=== PATIENT | female | born 1960 | race Caucasian/White ===

== ENCOUNTER 2018-03-17 08:15 | Outpatient (CLI) | payer OTHER, SELFPAY ==
[2018-03-17 09:15] LABS: Microalb ug/mg Crea 3.5 ug/mg Cr
[2018-03-17 10:06] LABS: ALT 58 U/L (12-78); AST 34 U/L (15-37); Albumin 4.1 g/dL (3.4-5.0); Alkaline Phosphatase 56 U/L (46-116); Anion Gap 7.4 mmol/L (3-11); BUN 22 mg/dL (7-18); Bilirubin, Total 0.6 mg/dL (0.2-1.0); CO2 30.6 mmol/L (21.0-32.0); CREATININE 1.02 mg/dL (0.55-1.02); Calcium 8.7 mg/dL (8.5-10.1); Chloride 102 mmol/L (98-107); Cholesterol 221 mg/dL (50-200); Estimated GFR 55.86 (mL/min/1.73m2); Glucose 108 mg/dL (70-100); HDL Cholesterol 75 mg/dL (40-60); LDL CHOLESTEROL 131 mg/dL (<100); Potassium 4.5 mmol/L (3.5-5.1); Sodium 140 mmol/L (136-145); Total Protein 6.9 g/dL (6.4-8.2); Triglyceride 59 mg/dL (30-150)
== END 2018-03-17 08:35 ==
PROVIDERS: PCP Nurse Practitioner Family; Visit Provider Nurse Practitioner Family
DX: I10 Essential (primary) hypertension (principal)
CPT/HCPCS: 36415; 80053; 80061; 83721; 82043; 82570

== ENCOUNTER 2018-08-11 10:09 | Emergency (ER) | payer OTHER, SELFPAY ==
[2018-08-11 10:18] VITALS: BP 131/88; PULSE 58; RESP 20; TEMP 36.7; O2SAT 99
--- NOTE | 2018-08-11 10:38 | ED.GENADUL_ITS ---
Discharge Plan Disposition Patient Disposition: HOME Condition: Good Discharge Details Chief Complaint: Cellulitis Clinical Impression: Bursitis of elbow Primary Care Provider: Rebecca Arnett ED Provider: Rachid Randhawa Home Meds and New Rx's Prescriptions: No Action aspirin [Aspir-81] 81 MG tablet,delayed release (DR/EC) 81 mg PO DAILY RF: 0 simvastatin 40 MG tablet 40 mg PO QPM RF: 0 epinephrine [EpiPen] 0.3 MG/0.3 ML auto-injector 0.3 mg IM PRNRF: 0 albuterol sulfate [Ventolin HFA] 8 GM HFA aerosol inhaler 18 gm Inhalation PRNRF: 0 calcium carbonate-vitamin D3 [Calcium 500 With D] 1 EACH tablet 1 ea PO DAILY RF: 0 Fish Oil 300 MG capsule 300 mg PO DAILY RF: 0 citalopram 10 mg Tablet 10 mg PO DAILY RF: 0 lisinopril 20 mg Tablet 20 mg PO DAILY RF: 0 Discharge Instructions Instructions: Elbow Bursitis (ED) Additional Instructions: Please take the clindamycin as directed. If you notice any spreading of the redness, please return immediately if you notice any worsening of your symptoms whatsoever return immediately for reevaluation in the ED. If your symptoms are not improving please follow-up promptly on Wednesday morning with your primary care provider. Please continue taking Tylenol and Motrin regularly. Use ice as we discussed. If you notice any worsening of your symptoms, or any new symptoms such as vomiting, diarrhea, fever, chills, shortness of breath, chest pain, numbness, weakness, or fainting , please return immediately to the emergency department for reevaluation. Please follow up with your primary care provider as soon as possible for reassessment and reevaluation. As always, it was a pleasure participating in your medical care today. Referrals: Irineo Solomon NP [NURSE PRACTITIONER] - Medical Decision Making This is a pleasant 58-year-old female who presents for left elbow pain on her nondominant elbow. She sustained an injury 2 weeks ago, no imaging was done as there was no significant pain. She has no history of gout or bursitis that she can recall. She was initially seen by her PCP 2-3 days ago for redness and swelling around the elbow, she was started on Keflex, unfortunately since then her symptoms have worsened, the redness and swelling has spread, she has had associated chills and malaise. She is not a diabetic. She has been taking the Keflex as directed since that initial episode and her symptoms have continued to worsen. Physical exam does demonstrate evidence of redness and swelling, however symptoms appear clinically consistent with potential infected bursitis rather than a septic joint. It was requested advised that we rule out septic joint, and although there is no significant clinical evidence of sepsis, with the patient spreading redness, and worsening of symptoms while on Keflex I do feel that workup is indicated at this time. If the patient's laboratory workup is relatively benign, I do feel that she would be a candidate for discharge home with stronger antibiotic therapy, primarily clindamycin. We will give the first dose of IV clindamycin here. 11:54 AM Patient's laboratory workup has returned, she has no elevated white count, however her ESR is minimally elevated at 32 and her CRP is notably elevated at 9, the remainder of her lab work is otherwise benign. The patient's x-ray shows no acute fracture. There is some soft tissue swelling but no other significant abnormality that I can appreciate. Formal x-ray report is read as normal. I did contact Dr. Bolaños, and discussed the case with him, including the imaging and laboratory workup as well as the patient's current clinical presentation in detail. He recommended starting the patient on Bactrim, however I suggested clindamycin and he was in agreement with this. Patient will be continued on clindamycin, Dr. galarza back and does not want immediate follow-up, thinks that at this time she should follow-up closely with her PCP. He feels that her signs and symptoms are clinically consistent with infected bursitis, and I do agree with this as she has normal range of motion without significant pain with movement, and her symptoms are clinically inconsistent with a septic joint. Bedside portable ultrasound shows no evidence of significant fluid pocket neck and actively be drained at this time. She is been given her first dose of clindamycin here, will give a prescription for home use. I had a long and thorough discussion with the patient regarding the plan for prompt return if she has any spreading of the redness, worsening of her symptoms, or worsening of her pain. The patient and are comfortable with this plan. I informed them to contact us if they have any concerns about any of her symptoms. I have extensively reviewed the treatment plan and discharge instructions with the patient and their family. I have addressed all patient concerns at this time. The patient and family was made aware of what symptoms to monitor for that would warrant a return to the emergency department. Discussed the plan with the patien t and family, they demonstrate verbal understanding and agreement with our assessment and plan at this time. HPI General Date/Time Provider Initiated Documentation: 08/11/18 10:17 . HPI Narrative: This is a 58-year-old female with a past medical history of hypertension, high cholesterol, who presents today for evaluation of left elbow pain. Patient states that she fell 2 weeks ago onto her left nondominant elbow. She had no pain at that time, things are going well until 2-3 days ago when she began to develop pain swelling and redness around the elbow. She was given Keflex over 48 hours ago by her PCP and is been taking that as directed ever since. Unfortunately since then she has gotten worse, the redness is spread down and up her arm, she complains of chills and general aches and pains and malaise at home. She denies any actual fever. She was seen by her PCP today prior to arrival who sent her into the ER to rule out a septic joint. Patient has no other complaints at this time. Pain is made worse with movement, but only in the maximal planes of flexion and extension, not with mild movement at the elbow itself. Pain is located on the tip of the elbow. She denies any history of gout. No other complaints or modifying factors at this time. Related Data Home Medications Medication Instructions Recorded Confirmed albuterol sulfate [Ventolin Hfa] 18 gm INHALATION PRN 10/18/12 10/18/12 aspirin [Aspir 81] 81 mg PO DAILY 10/18/12 08/11/18 calcium carbonate-vitamin D3 1 ea PO DAILY 10/18/12 08/11/18 [Calcium 500 with Vitamin D Tab] epinephrine [Epipen] 0.3 mg IM PRN 10/18/12 10/18/12 omega-3 fatty acids [Fish Oil] 300 mg PO DAILY 10/18/12 08/11/18 simvastatin 40 mg PO QPM 10/18/12 07/09/16 citalopram 10 mg PO DAILY 08/11/18 08/11/18 lisinopril 20 mg PO DAILY 08/11/18 08/11/18 Allergies Allergy/AdvReac Type Severity Reaction Status Date / Time bee pollen [Bee Pollen] Allergy Severe anaphylacti Unverified 08/11/18 10:21 c General Stated Complaint: Cellulitis DESIREE: 3 Review of Systems Review of Systems All systems reviewed & are unremarkable except as noted in HPI and below PFSH Medical History High cholesterol (Chronic) Hypertension (Chronic) Social History Smoking/Tobacco Use Status: Never Alcohol Intake: never Drug use: Never Substance use type: does not use Do you feel safe at home: Yes Do you feel safe in your relationship?: Yes Exam Narrative Exam Narrative: 1.Const: Well-nourished, Well-developed, appearing stated age 2.Eyes: PERRL, no conjunctival injection, and symmetrical lids. 3.ENT: Atraumatic external nose and ears. Moist MM. Neck: Symmetric, trachea midline, No thyromegaly. 4.CVS: +S1/S2, No murmurs or gallops. Peripheral pulses 2+ and equal in all extremities. Brisk capillary refill in all extremities. 5.RESP: Unlabored respiratory effort. Clear to auscultation bilaterally. No wheezes rales or rhonchi 6.GI: Soft, Nontender/Nondistended, No hepatosplenomegaly. No guarding or rebound. 7.MSK: Normocephalic/Atraumatic, Extremities w/o deformity. No cyanosis or clubbing. Notable swelling and redness over the olcrenon OF THE LEFT ELBOW. THERE IS A SCAB AT THE TIP BUT NO ACTIVE DRAINAGE. The area has minimal fluctuance, notable warmth, the warmth and redness spread proximally and distally down the arm, extending past the marked line that delineated where the redness was 2 days ago. Range of motion of the elbow is good, no evidence of crepitus, or subcutaneous crepitus. Pain is noted at the maximal points of flexion and extension for the elbow. Swelling is present down to the wrist. Sensation is intact throughout, radial pulses are intact bilaterally, +2. Capillary refill is brisk. 8.Skin: Warm, Dry. No rashes or lesions. 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 Sensation grossly intact, no focal neurologic deficits. 10.Psych: (AAO) x3. Appropriate mood and affect Course Vital Signs Temperature 36.7 C 08/11/18 10:18 Pulse 58 L 08/11/18 10:18 Respiratory Rate 20 08/11/18 10:18 Blood Pressure 131/88 08/11/18 10:18 Pulse Oximetry 99 08/11/18 10:18 Temperature 36.7 C 08/11/18 10:18 Temperature Source Temporal Artery Scan 08/11/18 10:18 Pulse 58 L 08/11/18 10:18 Respiratory Rate 20 08/11/18 10:18 Respiratory Effort Non-Labored 08/11/18 10:18 Blood Pressure 131/88 08/11/18 10:18 Blood Pressure Position Sitting 08/11/18 10:18 Pulse Oximetry 99 08/11/18 10:18 Oxygen Delivery Method Room Air 08/11/18 10:18 Oxygen Flow Rate 0 08/11/18 10:18 Pain Level 4 08/11/18 10:18 Lab/Test Results Lab/Test Results: 08/11/18 10:28 Blood Blood Culture - Pending 08/11/18 10:28 Blood Blood Culture - Pending
[2018-08-11 10:57] LABS: Abs Immature Grans 0.01 k/cumm (0.0-0.09); Absolute Basophil Count 0.02 k/cumm (0.0-0.2); Absolute Eosinophil Count 0.04 k/cumm (0.0-0.7); Absolute Lymphocyte Count 1.58 k/cumm (1.2-3.4); Absolute Neutrophil Count 6.22 k/cumm (1.2-6.7); Basophils % 0.2; Eosinophils % 0.5; HCT 41.4 % (36.0-46.0); HGB 14.2 g/dL (12.0-15.5); Immature Grans % 0.1; Lymphocytes % 18.2; Mean Corp. HGB Concentration 34.3 g/dL (32.0-36.0); Mean Corpuscular Hemoglobin 32.3 pg (27.0-33.0); Mean Corpuscular Volume 94.3 fL (80-95); Mean Platelet Volume 10.8 fL (8.0-11.0); Monocytes % 9.2; Neutrophils % 71.8; Platelet Count 212 x1000/uL (130-400); RBC 4.39 m/cumm (4.00-5.20); RBC Distribution Width 12.2 % (11.7-14.6); White Blood Cell Count 8.67 k/cumm (4.4-10.8)
[2018-08-11] MEDS: CLINDAMYCIN 600 MG/50 ML BAG 100 MG IVPB (11:11)
[2018-08-11 11:19] LABS: ALT 49 U/L (12-78); AST 31 U/L (15-37); Albumin 3.6 g/dL (3.4-5.0); Alkaline Phosphatase 66 U/L (46-116); Anion Gap 7.3 mmol/L (3-11); BUN 20 mg/dL (7-18); Bilirubin, Total 0.4 mg/dL (0.2-1.0); C-Reactive Protein 9.02 mg/dL (0.0-0.3); CO2 26.7 mmol/L (21.0-32.0); CREATININE 0.97 mg/dL (0.55-1.02); Calcium 8.8 mg/dL (8.5-10.1); Chloride 103 mmol/L (98-107); Estimated GFR 59.19 (mL/min/1.73m2); Glucose 109 mg/dL (70-100); Potassium 4.4 mmol/L (3.5-5.1); Sodium 137 mmol/L (136-145); Total Protein 6.9 g/dL (6.4-8.2)
--- NOTE | 2018-08-11 11:38 | DI.RAD_ITS ---
SYMPTOMS/DIAGNOSIS: LT ELBOW SWELLING, PAIN AFTER INJURY, ? FX LEFT ELBOW: Sof tissue swelling is noted about the elbow. The findings most prominent over the olecranon process of the ulna. There is no evidence of a joint effusion, fracture or dislocation.
[2018-08-11 11:49] LABS: ESR 32 MM/HR (0-30)
--- NOTE | 2018-08-12 08:29 | PDOC.ERCMPRO ---
Care Management Progress Note 08/12-Dr. Randhawa requested assistance with a PCP (Neha) f/u on Sunday 08/13 for cellulitis left elbow. Referral faxed to [facility] 08/11 in the afternoon.
--- NOTE | 2018-08-21 11:07 | W.ED.FU ---
Date of service: 08/21/18 Follow Up Plan: The patient called back today on 08/21/18. She states that her elbow is much better, the redness is gone away completely and that she is feeling much better, however this morning she did notice a mild itchy rash on her scalp and on some other places of her body. She denies any skin breakdown or sloughing of the skin for this rash. The patient has had 10 days of clindamycin, and the rash just started. She denies any acute GI symptoms, throat tightening, swelling, difficulty breathing, difficulty eating or drinking, or difficulty controlling secretions. I recommended to her that if she has any concerns she can immediately come in to be assessed and evaluated, however an alternative is taking 50 mg of Benadryl, taking multiple cell feeds to manage change in rash, and then reassessment after Benadryl. Patient elected to start with Benadryl and then either call back or reassess as the symptoms change. I made it clear that we would be happy to see her here in the emergency department as well as talk to her again if she had any questions or concerns. Clinically from the phone call certainly sounds like a very mild rash, potentially allergic in nature, but if it is very mild. Recommended stopping clindamycin as well as she has had a full 10 days of antibiotics.
== END 2018-08-11 12:04 | disposition home or self-care (01) ==
PROVIDERS: Emergency Provider Student in an Organized Health Care Education/Training Program; PCP Nurse Practitioner Family
DX: M70.22 Olecranon bursitis, left elbow (principal); I10 Essential (primary) hypertension
CPT/HCPCS: 36415; 80053; 85652; 87040; 96365; 99284; 73080; 83605; 85025; 86140

== ENCOUNTER 2018-10-13 10:54 | Outpatient (CLI) | payer OTHER, SELFPAY ==
--- NOTE | 2018-10-13 10:50 | DI.RAD_ITS ---
SYMPTOMS/DIAGNOSIS: PAIN, ? DJD LT KNEE LEFT KNEE: Narrowing of the medial tibiofemoral joint space is demonstrated. There is mild periarticular hypertrophic spurring. Findings consistent with moderate DJD.
== END 2018-10-13 11:14 ==
PROVIDERS: PCP Nurse Practitioner Family; Visit Provider Orthopaedic Surgery
DX: M25.562 Pain in left knee (principal); M17.12 Unilateral primary osteoarthritis, left knee
CPT/HCPCS: 73562

== ENCOUNTER 2019-02-23 02:51 | Outpatient (CLI) | payer OTHER, SELFPAY ==
--- NOTE | 2019-02-23 12:50 | DI.MAMMO_ITS ---
EXAM: MG MAMMO SCREENING CLINICAL HISTORY: PREVENTIVE CARE Z00.00. TECHNIQUE: Mammograms were interpreted according to the usual protocol including computer analysis w Viropro system, tomosynthesis and C-view imaging. COMPARISON: Current examination is compared with previous examinations including September 2015 FINDINGS: Breasts are of moderate density with fairly symmetrical distribution of fibroglandular tissue. No dom inant mass or clumped microcalcification is identified in either breast. Current examination is comp ared with previous examinations including September 2015 and there has been no gross interval change in myke earance in comparison with the previous studies. IMPRESSION: No specific evidence of malignancy at this time. Routine screening examinations are suggested at year ly intervals in this age group according to the ACS/ACR guidelines. Category 1, breast density catego ry B. BI-RADS Cat 1 - Negative Breast Density - Category B - Scattered areas of fibroglandular density
== END 2019-02-23 03:11 ==
PROVIDERS: PCP Nurse Practitioner Family; Visit Provider Nurse Practitioner Family
DX: Z00.00 Encounter for general adult medical examination without abnormal findings (principal); Z12.31 Encounter for screening mammogram for malignant neoplasm of breast
CPT/HCPCS: 77063; 77067

== ENCOUNTER 2019-05-25 13:20 | Outpatient (CLI) | payer OTHER, SELFPAY ==
--- NOTE | 2019-05-25 14:25 | DI.RAD_ITS ---
EXAM: XR STANDING ALIGNMENT CLINICAL HISTORY: pre-operative planning for left TKA TECHNIQUE: AP views of the lower extremities were obtained for leg length determination. COMPARISON: No exams were available for comparison FINDINGS: There appear to be mild degenerative changes of both hips. There are severe degenerative changes of the left knee predominantly involving the medial tibiofemoral joint with prominent marginal osteophyt es involving medial and lateral tibiofemoral joints. Mild DJD of the right knee noted with mild narr owing of medial tibiofemoral joint.
== END 2019-05-25 13:40 ==
PROVIDERS: PCP Nurse Practitioner Family; Visit Provider Nurse Practitioner Family
DX: M16.0 Bilateral primary osteoarthritis of hip (principal); M17.0 Bilateral primary osteoarthritis of knee
CPT/HCPCS: 77073

== ENCOUNTER 2019-05-25 13:46 | Outpatient (CLI) | payer OTHER, SELFPAY ==
[2019-05-25 14:04] LABS: HGB 13.3 g/dL (12.0-15.5); Mean Corp. HGB Concentration 34.1 g/dL (32.0-36.0); Mean Corpuscular Hemoglobin 32.8 pg (27.0-33.0); Mean Corpuscular Volume 96.3 fL (80-95); Mean Platelet Volume 10.1 fL (8.0-11.0); Platelet Count 300 x1000/uL (130-400); RBC 4.05 m/cumm (4.00-5.20); RBC Distribution Width 13.1 % (11.7-14.6); White Blood Cell Count 8.09 k/cumm (4.4-10.8)
--- NOTE | 2019-05-25 14:06 | W.PREOPHP ---
Assessment and Plan Assessment and plan (1) Primary osteoarthritis of left knee: Status: Chronic Assessment and plan: Plan: Educated patient on surgery covering surgical technique, recovery process, benefits and risks including but not limited to risk of infection, blood clot, damage to soft tissue/blood vessels/nerves in detail. After discussion patient gives verbal understanding of risks and elects to proceed with scheduling surgery. Patient had opportunity to have questions answered to their satisfaction. They will contact office if issues arise. Patient will continue to be scheduled for left TKA with Dr. Milan. History of Present Illness Narrative: Ms. Alcala is a 59-year-old female who presents to clinic for pre-operative exam for scheduled left TKA. Patient had previously been managed by Dr. Bolaños with injections. States that her last steroid injection that provided full relief for a month. Pain is mostly along the medial aspect but has progressed to be more diffuse. There is a constant achy pain with more sharp pains elicited. Describes pain is aggravated with prolonged weightbearing activity especially at the end of the day. Also reports increased discomfort at night when laying in bed which she treats by applying pillows. Due to her continued pain she was offered and elected to proceed with surgical intervention. Pertinent Surgical Information Denies past medical history of: stroke, cardiac issues, angina, asthma, COPD, sleep apnea, renal issues, liver issues, hepatitis, gastrointestinal issues, ulcers, bleeding disorders, seizures, migraines, anxiety, diabetes, autoimmune disorders, thyroid issues. Denies prior complications from surgery or anesthesia. Review of Systems Constitutional Constitutional: Denies fever(s), Denies frequent falls and Denies headache(s) Eyes Eyes: Denies change in vision ENT Ears, Nose, Mouth, and Throat: Denies dizziness, Denies ear discharge, Denies headache(s), Denies epistaxis, Reports nasal discharge (had a runny nose - has resolved to clear discharge), Denies sinus pain, Denies sinus pressure and Denies sore throat Cardiovascular Cardiovascular: Denies chest pain, Denies rapid heart rate, Denies irregular heart rhythm, Denies palpitations, Denies dyspnea, Denies dyspnea on exertion, Denies orthopnea, Denies paroxysmal nocturnal dyspnea and Denies slow heart rate Respiratory Respiratory: Reports cough (now a dry cough - resolving), Denies dyspnea, Denies dyspnea on exertion and Denies wheezing Gastrointestinal Gastrointestinal: Denies abdominal pain, Denies melena, Denies hematochezia, Denies constipation, Denies diarrhea, Denies nausea and Denies vomiting Genitourinary Genitourinary: Denies hematuria, Denies dysuria and Denies urinary urgency Musculoskeletal Musculoskeletal: Reports as per HPI, Denies numbness and Denies tingling Neurologic Neurologic: Denies dizziness, Denies frequent falls, Denies headache(s), Denies numbness and Denies tingling Psychiatric Psychiatric: Denies anxiety and Denies depression Endocrine Endocrine: Denies palpitations Allergic/Immunologic Allergic/Immunologic: Denies wheezing [facility] Medical History (Updated 05/25/19 @ 14:32 by Stefania Blackwell) Depression (Chronic) High cholesterol (Chronic) Hypertension (Chronic) Surgical History (Updated 05/25/19 @ 13:10 by Zara Bal RN) Hx of dilation and curettage (Acute) Family History (Updated 05/25/19 @ 13:15 by Zara Bal RN) Father No problems noted. Social History (Updated 05/25/19 @ 14:14 by Stefania Blackwell) Smoking/Tobacco Use Status: Former Tobacco Use Alcohol Intake: current Alcohol Intake frequency: 0-2 drinks per day Drug use: Never Substance use type: does not use Do you feel safe at home: Yes Do you feel safe in your relationship?: Yes Meds Home Medications and Allergies Home Medications Medication Instructions Recorded Confirmed Type albuterol sulfate [Ventolin Hfa] 18 gm INHALATION DIRECTED PRN 10/18/12 05/25/19 History epinephrine [Epipen] 0.3 mg IM PRN 10/18/12 05/25/19 History omega-3 fatty acids [Fish Oil] 300 mg PO HS 10/18/12 05/25/19 History simvastatin 40 mg PO QPM 10/18/12 05/25/19 History citalopram 10 mg PO HS 08/11/18 05/25/19 History lisinopril 20 mg PO HS 08/11/18 05/25/19 History naproxen 250 mg tablet 250 mg PO BID PRN 03/02/19 05/25/19 History Allergies Allergy/AdvReac Type Severity Reaction Status Date / Time bee pollen [Bee Pollen] Allergy Severe anaphylacti Unverified 05/25/19 14:10 c clindamycin AdvReac RASH Verified 05/25/19 14:10 Exam Const General: cooperative and no acute distress [facility] Head: normal to inspection, normocephalic and atraumatic Ears: external ears normal General nose exam: external nose normal and no nasal discharge Face and sinus: face symmetric Mouth: oral mucosae normal, lip normal, tongue normal and moist mucous membranes Teeth and gingiva: dentition normal Throat: posterior oropharynx normal Eyes General: appearance normal, both eyes and all related structures Pupils: PERRL EOM: EOM intact bilaterally Neck Neck: trachea midline Carotids: normal carotid upstroke Lymphatic: no lymphadenopathy noted Resp Effort & Inspection: normal respiratory effort and able to speak in complete sentences Auscultation: clear to auscultation bilaterally, no rales, no rhonchi and no wheezes Cardio Heart Sounds: S1 normal, S2 normal and no murmurs Pulses: radial pulses present bilaterally GI Palpation: soft, no hepatosplenomegaly and nontender Auscultation: normal bowel sounds Skin General skin exam: no rashes or lesions noted Results Labs Result diagrams: 05/25/19 13:55 05/25/19 13:55 Labs: Laboratory Results - last 24 hr 05/25/19 13:55 WBC 8.09 RBC 4.05 Hgb 13.3 Hct 39.0 MCV 96.3 H MCH 32.8 MCHC 34.1 RDW 13.1 Plt Count 300 MPV 10.1
[2019-05-25 14:44] LABS: Anion Gap 6.9 mmol/L (3-11); BUN 21 mg/dL (7-18); CO2 31.1 mmol/L (21.0-32.0); CREATININE 0.81 mg/dL (0.55-1.02); Calcium 9.5 mg/dL (8.5-10.1); Chloride 103 mmol/L (98-107); Glucose 96 mg/dL (74-106); Potassium 4.5 mmol/L (3.5-5.1); Sodium 141 mmol/L (136-145)
== END 2019-05-25 14:06 ==
PROVIDERS: PCP Nurse Practitioner Family; Visit Provider Student in an Organized Health Care Education/Training Program
DX: M25.562 Pain in left knee (principal); M17.12 Unilateral primary osteoarthritis, left knee; Z01.818 Encounter for other preprocedural examination; Z01.812 Encounter for preprocedural laboratory examination
CPT/HCPCS: 36415; 80048; 85027; NC

== ENCOUNTER 2019-05-30 06:25 | Observation (INO) | payer OTHER, SELFPAY ==
[2019-05-25 13:07] VITALS: BP 139/92; PULSE 65; RESP 16; TEMP 37.2; O2SAT 97
[2019-05-30] VITALS (9 sets, daily range): BP systolic 110–130; BP diastolic 69–85; PULSE 57–70; RESP 15–23; TEMP 36.1–37.1; O2SAT 95–98
[2019-05-30] MEDS: Acetaminophen 500 MG TAB 1000 MG PO ×2 (07:01→16:47)
[2019-05-30] MEDS: Gabapentin 300 MG CAP PO (07:02)
[2019-05-30] MEDS: Celecoxib 200 MG CAP 400 MG PO (07:02)
[2019-05-30] MEDS: Lactated Ringers 1,000 ML 80 ML IV ×3 (07:25→11:43)
[2019-05-30] MEDS: ceFAZolin 2 GM/50 ML BAG IVPB (08:12)
[2019-05-30] MEDS: Bupivacaine 0.25% Pres-Free 30 ML VIAL (09:10)
[2019-05-30] MEDS: Ketorolac 30 MG/ML VIAL (09:12)
[2019-05-30] MEDS: Normal Saline 20 ML VIAL (09:14)
[2019-05-30] MEDS: ceFAZolin 1 GM/50 ML BAG IVPB (13:01)
--- NOTE | 2019-05-30 14:12 | IN_ITS ---
Date of service: 05/30/19 Time of Service: 13:22 PT Notes Visit Reasons: (L) KNEE OA Physical Therapy Inpatient Initial Evaluation Date: 05/30/2019 Referring Doctor: Clifton Milan MD PT Orders: PT CONSULT: s/p L TKA Precautions: Fall. Standard. Activity as tolerated. Patient Profile/Admitting Diagnosis: Pt is a 59-year-old female presenting s/p L TKA on 05/30/2019. She has a history of L knee osteoarthritis, which she had received steroid injections for prior to surgery and trialed outpatient PT for reduction in pain. 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 She lives at home with her . Notes there are two steps to enter the home with no railing. Ten steps to get to the second floor with railings on the left. She notes that she could sleep on the couch if unable to do stairs. Reports that she has four cats and two dogs in the home. Equipment Owned/DME: Did not previously use any assistive devices, however does have a four-wheeled walker. Subjective: Pt reports that she is not currently experiencing any pain at the time of the IE. Objective: General Observation: Mental Status: Alert and oriented x4 Pain: 0/10 Vital Signs: Supine: BP 122/76 mmHg, HR 66 bpm Sitting: BP 127/85 mmHg, HR 61 bpm Standing: BP 120/74 mmHg, HR 75 bpm ROM: Right Upper Extremity: Shoulder Flexion WFL. Shoulder abduction WFL. Elbow flexion WFL. Wrist flexion WFL. Opening and closing of hand WFL. Left Upper Extremity: Shoulder Flexion WFL. Shoulder abduction WFL. Elbow flexion WFL. Wrist flexion WFL. Opening and closing of hand WFL. Right Lower Extremity: Hip flexion WFL. Hip abduction WFL. Knee flexion WFL. Ankle dorsiflexion WFL. Ankle plantarflexion WFL. Left Lower Extremity: Hip flexion WFL. Hip abduction WFL. Knee flexion 115 degrees. Knee extension -23 degrees. Able to perform 10 SLRs on the LLE with minimal difficulty with extensors lag. Ankle dorsiflexion WFL. Ankle plantarflexion WFL. Strength: Right Upper Extremity: Shoulder flexors 5/5. Shoulder abductors 5/5. Elbow flexors 5/5. Elbow extensors 5/5. Chisel Mortiser Operator strong. Left Upper Extremity: Shoulder flexors 5/5. Shoulder abductors 5/5. Elbow flexors 5/5. Elbow extensors 5/5. Chisel Mortiser Operator strong. Right Lower Extremity: Hip flexors 5/5. Hip abductors 5/5. Knee flexors 5/5. Knee extensors 5/5. Ankle dorsiflexors 5/5. Ankle plantarflexors 5/5. Left Lower Extremity: Hip flexors 4/5. Hip abductors 5/5. Knee flexors 3-/5. Knee extensors 3-/5. Ankle dorsiflexors 5/5. Ankle plantarflexors 5/5. Sensation: Intact as to pain and pressure on bilateral lower extremities. Bed Mobility/Transfers: Supine to sit: independent with bed flat Sit to supine: SBA Sit to stand: SBA Stand to sit: SBA Bed to chair: SBA Chair to bed: SBA Gait: Pt was able to ambulate with WBAT 150 feet using two-wheeled walker without requiring any rest breaks. SBA of PT with wheelchair and follow from student [facility] for 75 feet. Pt denies pain with ambulation, however, reports feeling of fatigue in the L quad. Balance: Static Sitting: Normal Dynamic Sitting: Normal Static Standing: Good Dynamic Standing: Fair Special Tests: Mobility Limitations Standardized Measure [facility] AM-PAC 6 clicks Basic Mobility Inpatient Short Form: Raw Score: 23 CMS Score: 11% deficit Informed Consent/Education: Patient instructed in purpose of PT consult and plan of care. Gluteal sets, quad sets, ankle pumps. Assessment: Pt is a 59-year-old female with history of L knee osteoarthritis presents s/p L TKA. At the time of the initial evaluation she reports no pain, however, presents with impairment level findings including decreased strength, impaired L knee ROM, impaired gait, impaired static and dynamic standing balance, and decreased activity tolerance. She would continue to benefit from skilled physical therapy at this time. Patient presents with clinical signs and symptoms consistent with current/admitting diagnoses that have resulted to mobility limitations, gait instability, generalized weakness, and impairment of motor control as demonstrat ed by the following impairment level findings: 1. Decreased strength to L LE hip and knee major muscle groups 2. Impaired static and dynamic standing balance 3. Impaired activity tolerance 4. Limitation of joint range of motion in L knee Impairments are contributing to the following functional limitations: 1. Dependent bed mobility skills 2. Increased dependence with transfers 3. Inability to safely ambulate without assistive device and physical assistance 4. Increase completion time for mobility ADL performance 5. Increased fall risk 6. Inability to negotiate steps alone safely 7. Inability to return to work related duties Patient is assessed as a 38286 moderate complexity based on the following: History: Pt is a 59-year-old female presenting s/p L TKA Examination: Demonstrable impairment in strength, balance, and range of motion with underlying impairments and functional limitations as documented above Presentation: evolving Decision Makin moderate complexity Goals: Goals X1 week 1. Sit-Stand independent 2. Stand-Sit independent 3. Bed-Chair independent 4. Chair-Bed independent 5. Independent gait on level surface with use of least restrictive device for at least 300 feet without report of pain nor dyspnea 6. Independent stair negotiation while holding onto bilateral rails for at least 10 steps without report of pain nor dyspnea 7. Independent with home exercise program 9. Good dynamic standing balance/tolerance Plan of Care/Treatment Plan: 1-2x/day, 7 days/week x 1 week. Plan of care has been reviewed with the [employer] providing the service under Physical Therapy direction. Initiate Physical Therapy intervention for strengthening, transfers, gait, stairs, balance training, use of assistive device. DISCHARGE RECOMMENDATIONS: Discharge to home with home health PT. TREATMENT CODE/TIME: 67907 x 38 minutes beginning at 13:22 PM. Thank you very much for this referral. Fernanda Roque, SPT DPT Student [facility] With supervision of: Velia Hadley PT, DPT, CLT [facility] [place], [place]
--- NOTE | 2019-05-30 14:55 | W.PM.DS.N ---
Date of service: 05/30/19 Time of Service: 17:20 DS: Diagnosis Discharge Diagnosis (1) Primary osteoarthritis of left knee: Status: Chronic Discharge Plan Disposition Patient Disposition: HOME Condition: Good Discharge Details Reason For Visit: (L) KNEE OA Admit Date/Time: 05/30/19 06:25 Admit Provider: Clifton Milan Attending Provider: Clifton Milan Primary Care Provider: Irineo Solomon Hospital Course Hospital Course: Patient was admitted to the medical/surgical floor following the procedure. It was tolerated well without any notable medical, surgical, or anesthetic complications. Mobilization began postoperatively. The gómez catheter was removed and voiding spontaneously. Vitals were stable. Physical therapy worked with the patient and was cleared for discharge home. No acute medical issues. Home Meds and New Rx's Prescriptions: New celecoxib 200 mg capsule 200 mg PO BID PRN (Reason: pain) Qty: 60 RF: 1 aspirin 81 mg tablet,delayed release (DR/EC) 81 mg PO BID Qty: 60 RF: 0 acetaminophen 500 mg tablet 1,000 mg PO Q8H PRN (Reason: pain) Qty: 90 RF: 3 pantoprazole 40 mg tablet,delayed release (DR/EC) 40 mg PO DAILY Qty: 30 RF: 0 gabapentin 300 mg capsule 300 mg PO QHS Qty: 7 RF: 0 oxycodone 5 mg tablet 5 mg PO Q4H Qty: 18 RF: 0 Continued simvastatin 40 MG tablet 40 mg PO QPM RF: 0 albuterol sulfate [Ventolin HFA] 8 GM HFA aerosol inhaler 18 gm Inhalation DIRECTED PRNRF: 0 Fish Oil 300 MG capsule 300 mg PO HS RF: 0 citalopram 10 mg Tablet 10 mg PO HS RF: 0 lisinopril 20 mg Tablet 20 mg PO HS RF: 0 Discontinued naproxen 250 mg tablet 250 mg PO BID PRNRF: 0 epinephrine [EpiPen] 0.3 MG/0.3 ML auto-injector 0.3 mg IM PRNRF: 0 acetaminophen [Tylenol Extra Strength] 500 mg Tablet 500 mg PO Q6H PRNRF: 0 Discharge Instructions Additional Instructions: Dr. Milan?s Total Knee Discharge Instructions Activity: The most important activity is to walk. You should try to take short walks a few times a day. It is important that when resting you work on keeping the knee straight. Avoid putting a pillow behind the knee as this will encourage flexion. Work on range of motion exercises as provided by Physical Therapy. - Start outpatient physical therapy within 2 weeks. - You should wear the MISTY hose on both legs for 2 weeks. Dressing: Remove the MELQUIADES wrap on 06/01/19. Keep the underlying surgical dressing in place for at least one week. After the first week it may be removed and replace with light gauze and tape or nothing. It may get wet after 3 days but avoid soaking the dressing. If it gets wet, just lightly pat dry. Medications: - You should take Tylenol and anti-inflammatory Celebrex as your primary pain control medications - You have been prescribed a stronger pain medication Oxycodone for breakthrough pain, take as needed as prescribed. - You have also been prescribed a stomach acid reduction agent Pantoprozole to help reduce stomach acid and reflux. - You will be taking Aspirin 81mg twice a day for DVT prevention unless instructed otherwise. - If you have constipation you should take Colace or Miralax (both [id number]). It takes most people 3-4 days to have a bowel movement. Follow-up: 2 weeks Referrals: Clifton Milan MD [ [facility] STAFF PHYSICIAN] - [facility] [Provider Group] (s/p L TKA) Activity:: Activity as Tolerated Equipment/Supplies:: Walker Diet:: As Tolerated Discharge Orders Discharge Orders: Discharge Order (Routine); Ordered 05/30/19 Ordered By: Clifton Milan DS: Summary Status at Discharge Functional status at discharge: uses cane/walker Overall status at discharge: patient is progressing back to baseline Mental Status: mental status grossly normal Speech and Movement: speech and movement normal Mood: congruent mood Affect: normal affect Exam Psych Mental Status: mental status grossly normal Speech and Movement: speech and movement normal Mood: congruent mood Affect: normal affect DS: Data Vitals/I&O Vitals and I&O: Vital Signs Temperature 37 C 05/30/19 11:38 Temperature Source Tympanic 05/30/19 11:38 Pulse 64 05/30/19 11:38 Pulse Rhythm Regular 05/30/19 11:44 Respiratory Rate 17 05/30/19 11:38 Respiratory Effort Non-Labored 05/30/19 11:44 Respiratory Depth Normal 05/30/19 11:44 Respiratory Pattern Normal 05/30/19 11:44 Blood Pressure 126/83 05/30/19 11:38 Pulse Oximetry 97 05/30/19 11:38 Respiratory End-tidal CO2 34 05/30/19 10:48 Oxygen Delivery Method Room Air 05/30/19 11:38 Oxygen Flow Rate 0 05/30/19 11:38 Pain Level 0 05/30/19 11:38 Intake & Output 05/29/19 05/30/19 05/30/19 23:59 11:59 23:59 Intake Total 1339.333 / 1579.333 240 / 1579.333 Output Total 225 / 225 Balance 1114.333 / 1354.333 240 / 1354.333 Weight 87.1 kg Intake: IV 1189.333 / 1189.333 Oral 150 / 390 240 / 390 Output: Urine 75 / 75 Estimated Blood Loss 150 / 150 Other: Urine Color Yellow Urine Appearance Clear Emesis Description None PFSH Medical History Depression (Chronic) High cholesterol (Chronic) Hypertension (Chronic) Surgical History Hx of dilation and curettage (Acute) Family History Father No problems noted. Social History Smoking/Tobacco Use Status: Former Tobacco Use Alcohol Intake: never Drug use: Never Substance use type: does not use Do you feel safe at home: Yes Do you feel safe in your relationship?: Yes
[2019-05-30] MEDS: oxyCODONE 5 MG TAB PO (16:46)
--- NOTE | 2019-05-30 17:22 | W.PM.OP ---
Date of service: 05/30/19 Time of Service: 10:22 Operative Note Operative Note DATE OF PROCEDURE: 05/30/19 PRE-OP DIAGNOSIS: Left Knee Osteoarthritis POST-OP DIAGNOSIS: same PROCEDURE: Left Total Knee Replacement SURGEON: Clifton Milan DRY CAN TENDER: Juliette Newell ANESTHESIA: regional and spinal ESTIMATED BLOOD LOSS: 150 PATHOLOGY: none sent TOURNIQUET TIME: 33 COMPLICATIONS: None Patient was transported to: PACU Patient's condition: stable Implants: 1. Depuy Attune Posterior Stabilized Femoral Component, Size 5 Narrow 2. Depuy Attune Fixed Platform Tibial Component, Size 4 3. Depuy Attune 5x8mm Fixed, Stabilized Poly 4. Depuy Attune Patellar Component, Size 35mm Indications: I have seen Emi in clinic for symptoms of left knee arthritis, confirmed with radiographic findings. Emi has exhausted nonoperative methods and was having significant limitations in daily function and desired better function and less pain. I discussed the technical details of a knee replacement. I explained the risks of the procedure to include, but not limited to, bleeding, infection, pain, stiffness, fracture, damage to nerves and vessels, damage to muscles and tendons, loosening, need for repeat procedure, blood clot and cardiopulmonary demise. Despite these risks, She elected to proceed. Findings: There was significant signs of arthritis throughout the knee. Procedure Description: Emi was greeted in the preoperative holding area where the correct side was identified and marked. The consent was reviewed with the patient and signed. The history and physical was updated. All questions were answered. Preoperative mediacations were administered: Acetaminophen 1000mg, Celebrex 400mg, and Gabapentin 300mg. An adductor canal block was then administered by the anesthesia team in the PACU. Emi was taken back to the operating room. A spinal anesthestic was then administered. The patient was placed into the supine position on the operating room table. A nonsterile tourniquet was placed high onto the leg but only used for cementing. Posts were placed for positioning during the procedure. All bony prominences were well padded. Prophylactic antibiotics in the form of Cefazolin were administered. 1g of Tranxemic Acid was given intravenously within 30 minutes of incision. The left leg was then prepped with Chloraprep and draped in a standard fashion with impervious stockinette and extremity drape. A second prep with Chloraprep was performed prior to placing Ioband. A timeout to confirm correct identity, side and site, procedure, allergies, anesthesia, and medical concerns was performed. With the knee in some flexion, a midline incision was made overlying the knee. Full thickness skin flaps were raised once the extensor mechanism was encountered. These were raised medially and laterally. Any bleeding was controlled with electrocautery. Once the extensor mechanism was fully exposed, a medial parapatellar arthrotomy was performed in a flexed position. All bleeding from the arthrotomy and the geniculate arteries was coagulated. A medial subperiosteal peel was performed with electrocautery to the midcoronal plane. Due to the significant varus deformity the entire medial tibial plateau was exposed. The fat pad was removed while keeping the patellar tendon protected. The anterior distal femur synovium was removed for later visualization. The ACL and PCL were resected and the anterior horn of the lateral meniscus was transected. The knee was then flexed with the patella everted. Large osteophytes from the tibia were removed. Large osteophytes from the femur were removed. Using a step drill, and based on preoperative templating, the femoral canal was entered. This was done with a step drill without any difficulty. The intramedullary distal femoral cut guide was inserted, set to a 5 degree valgus cut and 9mm cut thickness. The distal femoral cut guide was then held in position and pinned. With the soft tissues protected, the distal cut was performed. This was passed over a few times to ensure a planar cut. I then turned attention to the tibia. The extramedullary guide was placed onto the leg. The distal aspect was slid medial to adjust for position of center of ankle and stay in line with shaft of the tibia. Approximately 3-5 degrees of posterior slope was kept in the proximal cutting guide. The center of the guide was aligned with the PCL. The stylus was used to assess cut thickness. The medial side, most involved side, was set for a 4mm cut which corresponded to a 9mm cut of the lateral side. This was then held in position and pinned into place with 2 additional pins and a cross pin for stability. The medial and lateral collateral ligaments were protected and the cut was performed. With this completed, it was assessed and noted to be of appropriate dimensions. The guide was removed. A spacer block was inserted and the knee was brought into extension. The 7mm spacer block provided full extension, without hyperextension and with stability of both the medial and lateral collateral ligaments was assessed. The pins from the femur and the tibia were then removed. The distal femur was then sized. The anterior stylus was placed onto the lateral ridge of the anterior femur. This indicated a size 5 femur. The external rotation of the guide was adjusted to 3 degrees to match the epicondylar axis, perpendicular to Gulf?s line. The 4-in-1 cutting guide was the placed. The posterior medial femur cut was evaluated and appeared of good thickness. The spacer block was inserted underneath the cutting guide and stability was confirmed in 90 degrees of flexion. An lucas wing was used to confirm appropriate position of the anterior cut to avoid notching. This cutting guide was ensured to be flush on the cut surface and then pinned into place with headed pins. While protecting the soft tissues, quad tendon, and collateral ligaments, the anterior and posterior cuts were performed with a saw. The central two pins were removed and the posterior and anterior chamfers were cut next. The notch-cutting guide was placed. This was pinned to lateralize the femoral component as much as possible while keeping it flush on the cut surface. This was then pinned into position. A reciprocating saw was used to make the notch cut. A rasp smoothed the cut surfaces. A trial posterior stabilized femoral component was then inserted, impacted down to the cut surfaces, and the lug holes were drilled. A provisional trial tibial component was placed and the knee was brought through range of motion. The polyethylene was trialed until there was good flexion and extension with excellent stability to the medial and lateral collaterals. The patella was tracking without thumbs. The tibial cut surface was fully exposed. The medial and lateral menisci were removed. The tibia was then sized as a 4. The tibia had been previously marked during trialing to correspond to the center of the tibial component to help with rotation. The trial was aligned to this juliette, approximately rotated to the medial 1/3rd of the tibial tubercle. The trial was pinned into place. The tibia was prepared with a reamer and a keel punch. The knee was then brought into extension and the patella was measured as 20mm. Using the patellar clamp and cut guide, this was resected to a flat surface with at least 13mm of thickness remaining. The size 35 patella fit the best. This was oriented and then clamped into position. The lugs were drilled. The trial components were removed. The final components, except for the polyethylene were opened on the back table. The periosteal and capsular tissues, especially posteriorly, around the knee were then systematically injected with a periarticular cocktail consisting of 50cc 0.25% Marcaine, 30mg Ketorolac, 20cc of Exparal and 50cc of injectable saline. The tourniquet was then inflated to 275mmHg. The knee was thoroughly irrigated with a pulse lavage and dried. On the back table, with the implants opened, the cement was mixed. 2 batches of antibiotic laden cement were prepared with vacuum assistance. After the cement was ready it was placed on to the back side of the tibial component. A small amount was placed onto the posterior flange of the femur. Cement was manual pressurized and impregnated into the cut surface of the tibia. The tibial component was then inserted into the cut surface and impacted into position. Excess cement was removed and the component was reimpacted. Again, excess cement was removed and our attention was then turned to the femur. The femoral cut surface was once again dried and cement was manually impacted into the cut surface. The femoral component was lined with the lug holes and impacted. Excess cement was removed. It was ensured to be down against the cut surface. The trial polyethylene was then inserted and the leg was brought out into full extension for the duration of the cement curing process, approximately 15min. Cement was lastly manually impacted into the cut surface of the patella and the patellar button was clamped into position and held. During this process attention was turned to the gutters of the knee and for all interfaces for any excess cement. While the cement was hardening, the knee was irrigated with Irrisept chlorhexadine solution. It was allowed to sit in the knee for 3 minutes. After the cement had finally cured, approximately 15min, the clamp was removed from the patella and the knee was taken through range of motion. A size 8mm polyethylene component provided the best range of motion and stability with less than 2mm gapping with medial and lateral stress and full extension without significant hyperextension. The patella was tracking with a no-thumbs technique. The trial poly was removed and once again the knee was checked for any loose, excess, or errant cement. The poly component was then inserted and impacted into position after cleaning and drying the tibial tray. The capsule was then reapproximated with a No. 1 Vicryl at multiple locations. The capsule was finally closed with a No. 2 Stratafix, barbed suture. The tourniquet was then released and the arthrotomy appeared watertight without significant bleeding. The second dosing of 1g TXA was started. Deep tissues were then reapproximated with 0 Vicryl and 2-0 Vicryl. The skin was closed with a running 3-0 Monocryl in a subcuticular fashion. This was reinforced with skin glue. A Mepilex silver dressing was applied along with a [id number] MELQUIADES wrap. A CryoCuff was applied. Emi was transferred to the hospital bed without difficulty an suffering no apparent complication. Emi has a good prognosis. Physical therapy will start today and without restrictions, weight-bearing as tolerated. Aspirin 81mg BID will be used for DVT prophylaxis.
[2019-05-31] MEDS: Bupivacaine 0.5% Pres-Free 30 ML VIAL (07:56)
--- NOTE | 2019-05-31 13:10 | INDS_ITS ---
Date of service: 05/31/19 Time of Service: 13:11 PT Notes Visit Reasons: (L) KNEE OA Physical Therapy Inpatient Discharge Summary Date: 05/31/2019 Dates of Service: 05/30/2019 only Referring Doctor: Clifton Milan MD PT Orders: PT CONSULT: s/p L TKA Precautions: Fall. Standard. Activity as tolerated. This is a clinical summary of care provided on the duration of dates listed above. No charge was made in the completion of this documentation. No charges were billed for this documentation of care. Patient Profile/Admitting Diagnosis: Pt is a 59-year-old female presenting s/p L TKA on 05/30/2019. She has a history of L knee osteoarthritis, which she had received steroid injections for prior to surgery and trialed outpatient PT for reduction in pain. 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 She lives at home with her . Notes there are four steps to enter the home with no railing. Ten steps to get to the second floor with bilateral railings. She notes that she could sleep on the couch if unable to do stairs. Reports that she has four cats and two dogs in the home. Equipment Owned/DME: none Objective: NT ROM: Right Upper Extremity: Shoulder Flexion WFL. Shoulder abduction WFL. Elbow flexion WFL. Wrist flexion WFL. Opening and closing of hand WFL. Left Upper Extremity: Shoulder Flexion WFL. Shoulder abduction WFL. Elbow flexion WFL. Wrist flexion WFL. Opening and closing of hand WFL. Right Lower Extremity: Hip flexion WFL. Hip abduction WFL. Knee flexion WFL. Ankle dorsiflexion WFL. Ankle plantarflexion WFL. Left Lower Extremity: Hip flexion WFL. Hip abduction WFL. Knee flexion 115 degrees. Knee extension -23 degrees. Able to perform 10 SLRs on the LLE with minimal difficulty. Ankle dorsiflexion WFL. Ankle plantarflexion WFL. Strength: Right Upper Extremity: Shoulder flexors 5/5. Shoulder abductors 5/5. Elbow flexors 5/5. Elbow extensors 5/5. Boiler Control Technician strong. Left Upper Extremity: Shoulder flexors 5/5. Shoulder abductors 5/5. Elbow flexors 5/5. Elbow extensors 5/5. Boiler Control Technician strong. Right Lower Extremity: Hip flexors 5/5. Hip abductors 5/5. Knee flexors 5/5. Knee extensors 5/5. Ankle dorsiflexors 5/5. Ankle plantarflexors 5/5. Left Lower Extremity: Hip flexors 4/5. Hip abductors 5/5. Knee flexors 3-/5. Knee extensors 3-/5. Ankle dorsiflexors 5/5. Ankle plantarflexors 5/5. Bed Mobility/Transfers: Supine to sit: independent Sit to supine: SBA Sit to stand: SBA Stand to sit: SBA Bed to chair: SBA Chair to bed: SBA Gait: Pt was able to ambulate with WBAT 150 feet using two-wheeled walker without requiring any rest breaks. SBA of PT with wheelchair and follow from student SPT. Pt denies pain with ambulation, however, reports feeling of fatigue in the L upper leg. Balance: Static Sitting: Normal Dynamic Sitting: Normal Static Standing: Good Dynamic Standing: Fair Assessment: Pt is a 59-year-old with history of L knee osteoarthritis presents s/p L TKA. At the time of the initial evaluation she reports no pain, however, presents with impairment level findings including decreased strength, impaired L knee ROM, impaired gait, impaired static and dynamic standing balance, and decreased activity tolerance. Pt is to be discharged home and would continue to benefit from skilled physical therapy at this time for improved functional mobility, joint mobility, strength and management of pain. Patient continues to present with clinical signs and symptoms consistent with current/admitting diagnoses that have resulted to mobility limitations, gait instability, generalized weakness, and impairment of motor control as demonstrated by the following impairment level findings: 1. Decreased strength to L LE hip and knee major muscle groups 2. Impaired dynamic standing balance 3. Impaired activity tolerance 4. Limitation of joint range of motion in L knee Impairments continue to contribute to the following functional limitations: 1. Increased dependence with transfers 2. Inability to safely ambulate without assistive device and physical assistance 3. Increase completion time for mobility ADL performance 4. Increased fall risk 5. Inability to negotiate steps alone safely 6. Inability to return to work related duties Patient is assessed as a [id number] moderate complexity based on the following: History: Pt is a 59-year-old female presenting s/p L TKA Examination: Demonstrable impairment in strength, balance, and range of motion with underlying impairments and functional limitations as documented above Presentation: evolving Decision Makin moderate complexity Goals: Goals X1 week 3. Sit-Stand independent -NOT MET 4. Stand-Sit independent -NOT MET 5. Bed-Chair independent -NOT MET 6. Chair-Bed independent -NOT MET 7. Independent gait on level surface with use of least restrictive device for at least 300 feet without report of pain nor dyspnea -NOT MET 8. Independent stair negotiation while holding onto bilateral rails for at least 10 steps without report of pain nor dyspnea -NOT MET 9. Independent with home exercise program -MET 10. Good dynamic standing balance/tolerance -NOT MET DISCHARGE RECOMMENDATIONS: Discharge to home with home health PT. TREATMENT CODE/TIME: MT Thank you very much for this referral. Fernanda Roque, IBRAHIMA Doctor of Physical Therapy Student [facility] Velia Hadley PT, DPT, CLT [facility] [place], [place]
== END 2019-05-30 18:05 | disposition home or self-care (01) ==
LOC: MS 14:56 → PDS 05-31 11:34 → MS 05-31 11:35
PROVIDERS: Admitting Provider Student in an Organized Health Care Education/Training Program; PCP Nurse Practitioner Family; Visit Provider Student in an Organized Health Care Education/Training Program
PROC: 0SRD0J9 Replacement of Left Knee Joint with Synthetic Substitute, Cemented, Open Approach (ICD-10-PCS; CPT 27447; principal; 2019-05-30 08:30)
DX: M17.12 Unilateral primary osteoarthritis, left knee (principal); M25.562 Pain in left knee; Z96.652 Presence of left artificial knee joint; I10 Essential (primary) hypertension
CPT/HCPCS: 27447; C1776; 76942; 97162; NC; G0378; J0690; J1885; J2001; J2250; J2405

== ENCOUNTER 2019-06-15 09:36 | Outpatient (CLI) | payer OTHER, SELFPAY ==
--- NOTE | 2019-06-15 08:49 | DI.RAD_ITS ---
EXAM: XR STANDING ALIGNMENT and XR left knee INDICATION: f/u L TKA. COMPARISON: XR STANDING ALIGNMENT from 05/25/2019 TECHNIQUE: 2D digital imaging was performed. FINDINGS: The joint space is well maintained on the right. There are postsurgical changes of a left total knee replacement. The orthopedic hardware appears in good position. The right lower extremity measures 86.8 cm. The left lower extremity measures 85.7 cm.
== END 2019-06-15 09:56 ==
PROVIDERS: PCP Nurse Practitioner Family; Visit Provider Student in an Organized Health Care Education/Training Program
DX: M17.12 Unilateral primary osteoarthritis, left knee (principal); Z96.652 Presence of left artificial knee joint; Z47.1 Aftercare following joint replacement surgery; M21.70 Unequal limb length (acquired), unspecified site
CPT/HCPCS: 73560; 77073

== ENCOUNTER 2019-12-11 08:16 | Outpatient (REF) | payer OTHER, SELFPAY ==
[2019-12-13 17:24] LABS: COVID-19 RT-PCR Result NEGATIVE (Negative)
== END 2019-12-11 08:36 ==
LOC: LBO 08:16
PROVIDERS: PCP Nurse Practitioner Family; Visit Provider Nurse Practitioner Family
DX: Z11.59 Encounter for screening for other viral diseases (principal)
CPT/HCPCS: U0003

== ENCOUNTER 2020-02-12 18:40 | Outpatient (REF) | payer OTHER, SELFPAY ==
[2020-02-12 19:31] LABS: Microalb ug/mg Crea 7.8 ug/mg Cr
[2020-02-12 20:07] LABS: PROTEIN 29.1 mg/dL
[2020-02-12 20:23] LABS: Prot/Crea Ur Ratio 0.07
== END 2020-02-12 19:00 ==
LOC: NCHCN 18:40
PROVIDERS: PCP Nurse Practitioner Family; Visit Provider Nurse Practitioner Family
DX: I10 Essential (primary) hypertension (principal); R73.03 Prediabetes
CPT/HCPCS: 82043; 82565; 82570; 84156

== ENCOUNTER 2020-05-30 09:20 | Outpatient (CLI) | payer BC, SELFPAY ==
--- NOTE | 2020-05-30 09:00 | DI.RAD_ITS ---
EXAM: XR KNEE LT 2V AP,LAT CLINICAL HISTORY: annual f/u L TKA. TECHNIQUE: 2D digital imaging was performed. COMPARISON: CR XR KNEE LT 1V from 06/15/2019 FINDINGS: Position alignment of the components of prosthesis remain satisfactory. No evidence of fracture nor loosening. No radiographic evidence of osteomyelitis. IMPRESSION: DATA REPOSITORY: RADIATION DOSE DELIVERED:
== END 2020-05-30 09:40 ==
PROVIDERS: PCP Nurse Practitioner Family; Referring Provider Nurse Practitioner Family; Visit Provider Student in an Organized Health Care Education/Training Program
DX: Z96.652 Presence of left artificial knee joint (principal)
CPT/HCPCS: 73560

== ENCOUNTER 2020-09-19 15:02 | Outpatient (REF) | payer BC, SELFPAY ==
--- NOTE | 2020-09-19 09:45 | PAPFT_PTH ---
PATIENT: Emi Alcala LOC: [facility]#:[id number] AGE/SX: 60/F ROOM: RE09/19/[address]: Irineo Solomon : 1960 BED: DIS: 09/19/2020 SPEC #: [id number] RECD: 09/19/20 18:23 STATUS: ELANA REHilda #: [id number] MARCLELE: 09/19/20 09:[address]: Irineo Solomon [facility] Cytology RECD BY: Aida Chairez Tissues: 1 - CX/ENDOCX FOR PAP SMEARS Procedures: PAP THIN PREP/UVM Screening HPV DNA PROBE Comments: [id number]
[2020-09-19 14:20] LABS: ALT 58 U/L (14-59); AST 32 U/L (15-37); Albumin 4.1 g/dL (3.4-5.0); Alkaline Phosphatase 58 U/L (46-116); Anion Gap 7.9 mmol/L (3-11); BUN 16 mg/dL (7-18); Bilirubin, Total 0.5 mg/dL (0.2-1.0); CO2 28.1 mmol/L (21.0-32.0); Calcium 8.8 mg/dL (8.5-10.1); Calculated LDL 99 mg/dL (<100); Chloride 105 mmol/L (98-107); Cholesterol 184 mg/dL (<200); Estimated GFR 56.75 (mL/min/1.73m2); Glucose 99 mg/dL (74-106); HDL Cholesterol 69 mg/dL (40-60); Potassium 4.9 mmol/L (3.5-5.1); Sodium 141 mmol/L (136-145); Triglyceride 81 mg/dL (<150)
[2020-09-19 14:22] LABS: Hemoglobin A1C 5.8 % (<5.7)
== END 2020-09-19 15:03 | disposition home or self-care (01) ==
LOC: NCHCN 15:02
PROVIDERS: PCP Nurse Practitioner Family; Visit Provider Nurse Practitioner Family
DX: R73.03 Prediabetes (principal); I10 Essential (primary) hypertension; E78.5 Hyperlipidemia, unspecified; Z00.00 Encounter for general adult medical examination without abnormal findings; Z12.4 Encounter for screening for malignant neoplasm of cervix; Z11.51 Encounter for screening for human papillomavirus (HPV)
CPT/HCPCS: 80053; 80061; 88142; 83036; 87624

== ENCOUNTER 2020-12-27 16:12 | Outpatient (REF) | payer BC, SELFPAY ==
[2020-12-29 00:32] LABS: COVID-19 RT-PCR UVMMC Result Negative (Negative)
== END 2020-12-27 16:13 | disposition home or self-care (01) ==
LOC: NCHCN 16:12
PROVIDERS: PCP Nurse Practitioner Family; Visit Provider Family Medicine
DX: Z20.822 Contact with and (suspected) exposure to COVID-19 (principal)
CPT/HCPCS: U0003

== ENCOUNTER 2022-08-03 18:56 | Outpatient (REF) | payer BC, SELFPAY ==
[2022-08-03 18:45] LABS: ALT 36 U/L (14-59); AST 34 U/L (15-37); Albumin 4.2 g/dL (3.4-5.0); Alkaline Phosphatase 53 U/L (46-116); Anion Gap 8.1 mmol/L (3-11); BUN 15 mg/dL (7-18); Bilirubin, Total 0.3 mg/dL (0.2-1.0); CO2 25.9 mmol/L (21.0-32.0); CREATININE 0.8 mg/dL (0.55-1.02); Calcium 9.8 mg/dL (8.5-10.1); Calculated LDL 97 mg/dL (<100); Chloride 104 mmol/L (98-107); Cholesterol 199 mg/dL (<200); Estimated GFR 83.78 (mL/min/1.73m2); Glucose 102 mg/dL (74-106); HDL Cholesterol 91 mg/dL (40-60); Potassium 4.8 mmol/L (3.5-5.1); Sodium 138 mmol/L (136-145); Total Protein 7.2 g/dL (6.4-8.2); Triglyceride 59 mg/dL (<150)
== END 2022-08-03 18:57 | disposition home or self-care (01) ==
LOC: NCHCN 18:56
PROVIDERS: Visit Provider Nurse Practitioner Family
DX: R73.03 Prediabetes (principal); E78.5 Hyperlipidemia, unspecified; I10 Essential (primary) hypertension
CPT/HCPCS: 80053; 80061; 83036

== ENCOUNTER 2022-12-09 11:18 | Outpatient (REF) | payer BC, SELFPAY ==
[2022-12-09 17:28] LABS: Hemoglobin A1C 5.7 % (<5.7)
== END 2022-12-09 11:19 | disposition home or self-care (01) ==
LOC: NCHCN 11:18
PROVIDERS: Visit Provider Nurse Practitioner Family
DX: R73.03 Prediabetes (principal)
CPT/HCPCS: 83036

== ENCOUNTER 2023-06-21 15:50 | Outpatient (REF) | payer BC, SELFPAY ==
[2023-06-21 20:07] LABS: Hemoglobin A1C 5.6 % (<5.7)
[2023-06-21 20:08] LABS: ALT 36 U/L (14-59); AST 29 U/L (15-37); Albumin 4.3 g/dL (3.4-5.0); Alkaline Phosphatase 48 U/L (46-116); Anion Gap 9.1 mmol/L (3-11); BUN 19 mg/dL (7-18); Bilirubin, Total 0.4 mg/dL (0.2-1.0); CO2 27.9 mmol/L (21.0-32.0); CREATININE 0.9 mg/dL (0.55-1.02); Calcium 9.8 mg/dL (8.5-10.1); Chloride 102 mmol/L (98-107); Estimated GFR 72.28 (mL/min/1.73m2); Glucose 94 mg/dL (74-106); Sodium 139 mmol/L (136-145); Total Protein 7.5 g/dL (6.4-8.2)
== END 2023-06-21 15:51 | disposition home or self-care (01) ==
LOC: NCHCN 15:50
PROVIDERS: Visit Provider Nurse Practitioner Family
DX: I10 Essential (primary) hypertension (principal); R73.03 Prediabetes
CPT/HCPCS: 80053; 83036

== ENCOUNTER 2024-04-15 09:10 | Emergency (ER) | payer BC, SELFPAY ==
[2024-04-15 09:13] VITALS: BP 146/76; PULSE 83; RESP 18; TEMP 36.6; O2SAT 100
--- NOTE | 2024-04-15 09:33 | ED.GENADUL_ITS ---
Discharge Plan Disposition Patient Disposition: Home Condition: Stable Discharge Details Clinical Impression: UTI (urinary tract infection) Primary Care Provider: Unknown,Unknown ED Provider: John Branch Home Meds and New Rx's Prescriptions: New nitrofurantoin monohyd/m-cryst [Macrobid] 100 mg capsule 100 mg PO Q12H 5 Days Qty: 10 0RF Rx Instructions: must administer with a meal/food phenazopyridine [Pyridium] 200 mg tablet 200 mg PO TID PRNQty: 6 0RF Continued epinephrine 0.3 mg/0.3 mL auto-injector 0.3 mg IM ONCE Rx Instructions: as a single dose citalopram 10 mg tablet 40 mg PO HS simvastatin 40 MG tablet 40 mg PO QPM lisinopril 20 mg Tablet 20 mg PO HS hydrochlorothiazide 25 mg tablet 25 mg PO DAILY Patient Comments: TAKE ONE TABLET BY MOUTH EVERY MORNING bupropion HCl 150 mg tablet extended release 24 hr 150 mg PO DAILY Patient Comments: TAKE ONE TABLET BY MOUTH EVERY DAY Discharge Instructions Additional Instructions: Your urine is consistent with an infection. If not improving this week follow-up either with express care or your primary care provider If you feel more ill or have new symptoms such as high fevers or severe back pain return to the emergency department for reevaluation HPI General Mode of arrival: ambulatory . Date/Time Provider Initiated Documentation: 04/15/24 09:10 . Limitations to Documentation: no limitations . Information obtained by: patient . History of Present Illness 64 year old F presents to the emergency department with the chief complaint of burning with urination, urinary frequency, described as moderate, Patient reports no radiation. Patient started experiencing this hour(s) (6) and it has been constant. No relieving factors improve symptom(s), No exacerbating factors reported . Patient notes denies fever/chills. Related Data Home Medications ?Medication ?Instructions ?Recorded ?Confirmed simvastatin 40 mg tablet 40 mg PO QPM 10/18/12 04/15/24 lisinopril 20 mg tablet 20 mg PO HS 08/11/18 04/15/24 citalopram 10 mg tablet 40 mg PO HS 05/08/21 04/15/24 epinephrine 0.3 mg/0.3 mL 0.3 mg IM ONCE 05/08/21 04/15/24 injection, auto-injector bupropion HCl 150 mg 24 hr tablet, 150 mg PO DAILY 04/15/24 04/15/24 extended release hydrochlorothiazide 25 mg tablet 25 mg PO DAILY 04/15/24 04/15/24 nitrofurantoin 100 mg PO Q12H 5 days #10 caps 04/15/24 monohydrate/macrocrystals 100 mg capsule (Macrobid) phenazopyridine 200 mg tablet 200 mg PO TID PRN 6 doses #6 tabs 04/15/24 (Pyridium) Previous Rx's ?Medication ?Instructions ?Recorded nitrofurantoin 100 mg PO Q12H 5 days #10 caps 04/15/24 monohydrate/macrocrystals 100 mg capsule (Macrobid) phenazopyridine 200 mg tablet 200 mg PO TID PRN 6 doses #6 tabs 04/15/24 (Pyridium) Allergies Allergy/AdvReac Type Severity Reaction Status Date / Time bee pollen (Bee Pollen) Allergy Severe anaphylacti Unverified 04/15/24 09:17 c clindamycin AdvReac RASH Verified 04/15/24 09:17 General Stated Complaint: Urinary DESIREE: 3 Review of Systems All systems reviewed & are unremarkable except as noted in HPI and below Constitutional Constitutional: Denies chills, Denies fever(s) and Denies weakness Cardiovascular Cardiovascular: Denies chest pain and Denies dyspnea Respiratory Respiratory: Denies cough and Denies dyspnea Gastrointestinal Gastrointestinal: Denies abdominal pain and Denies vomiting Genitourinary Genitourinary: Reports dysuria and Reports urinary urgency Integumentary/Breasts Skin/Breast: Denies rash Neurologic Neurologic: Denies weakness Psychiatric Psychiatric: Denies depression Exam Const General: no acute distress Orientation: alert [facility] Head: normal to inspection Ears: external ears normal General nose exam: external nose normal Mouth: moist mucous membranes Eyes General: appearance normal, both eyes and all related structures Neck Neck: normal visual inspection Resp Effort & Inspection: normal respiratory effort and able to speak in complete sentences Cardio Rate: regular rate GI Palpation: soft and nontender General: No CVA tenderness Skin General skin exam: no rashes or lesions noted Neuro General: patient alert and patient oriented x3 Extrem General: normal to inspection Psych Mental Status: mental status grossly normal Course Vital Signs Vital signs: Vital Signs Temperature 36.6 C 04/15/24 09:13 Pulse 83 04/15/24 09:13 Respiratory Rate 18 04/15/24 09:13 Blood Pressure 146/76 H 04/15/24 09:13 Pulse Oximetry 100 04/15/24 09:13 Temperature 36.6 C 04/15/24 09:13 Temperature Source Temporal Artery Scan 04/15/24 09:13 Pulse 83 04/15/24 09:13 Respiratory Rate 18 04/15/24 09:13 Respiratory Effort Normal, Non-Labored 04/15/24 09:19 Blood Pressure 146/76 H 04/15/24 09:13 Pulse Oximetry 100 04/15/24 09:13 Medical Decision Making 64-year-old female comes about 6 hours of burning with urination and urinary frequency and urgency. Denies any fevers, abdominal pain, vomiting, back pain. She is well-appearing and afebrile on arrival. She has a soft nontender abdomen, no CVA tenderness. Suspect UTI given her symptoms, will check UA. She has no fever and appears well so doubt sepsis and do not feel other labs or imaging indicated at this time. Patient stable, UA is consistent with a urinary tract infection. Will initiate Pyridium and Macrobid. She is stable for discharge and will follow-up with her PCP if not improving, return precautions given Differential Diagnosis Differential Diagnosis: Cystitis, UTI Quality:SDOH Health Related Social Needs: No Data to Display PFSH All Active Problems (Updated 04/15/24 @ 09:56 by John Branch MD) UTI (urinary tract infection) (Acute) Reactive airways dysfunction syndrome (Acute) Prediabetes (Acute) Screening for colon cancer (Acute) Medical History (Updated 04/15/24 @ 09:56 by John Branch MD) Encounter for screening for other viral diseases Depression Hypertension High cholesterol Surgical History (Updated 05/08/21 @ 10:55 by Lidia Kohler RN) Status post total left knee replacement (05/30/19) Hx of dilation and curettage Family History Father No problems noted. Social History Smoking/Tobacco Use Status: Former Tobacco Use Smoking risk assessment performed?: Yes Alcohol Intake: current Alcohol Intake frequency: 0-2 drinks per day Drug use: Occasionally Substance use type: marijuana Housing: house Current gender identity: female Do you feel safe at home: Yes Do you feel safe in your relationship?: Yes PAWSS Have you Been Recently Intoxicated or Drunk Within the Last 30 days?: No Have you Ever Experienced Previous Episodes of Alcohol Withdrawal?: No Have you ever Experienced Withdrawal Seizures?: No Have you ever Experienced Delirium Tremens(DT)s?: No Have you ever undergone Alcohol Rehabilitation Treatment (i.e, inpt ot outpatient treatment programs)?: No Have you ever Experienced Blackouts?: No Have you ever Combined Alcohol with other Downers within the last 90 days?: No Have you ever Combined Alcohol with any other Substance of Abuse during the last 90 days?: No Result: 0
[2024-04-15 09:34] LABS: Bilirubin Negative (Negative); Blood Large (Negative); Clarity Sl Cloudy (Clear); Glucose Negative (Negative); Ketones Negative (Negative); Leukocyte Esterase Moderate (Negative); Nitrite Negative (Negative); Specific Gravity 1.015 (1.005-1.025); Urobilinogen 0.2 mg/dL (Up to 0.2); pH 8.5 (5-8)
[2024-04-15 09:42] LABS: Bacteria Few HPF (Negative); C & S Indicated? Yes; Casts Negative LPF (Negative); Crystals Negative HPF (Negative); Epithelial Cells Rare HPF (Negative); Mucus Negative (Negative); RBC >50 HPF (0-2); WBC 20-50 HPF (0-5)
[2024-04-15] MEDS: Phenazopyridine 200 MG TAB PO (09:57)
[2024-04-15] MEDS: MacroBID 100 MG CAP PO (09:57)
--- NOTE | 2024-04-17 08:10 | NUR.NOTE ---
Accessed Pt chart to note the antibiotics given to the Pt for the specimen sheet. Document given to Dr aMne
--- NOTE | 2024-04-18 13:43 | W.ED.FU ---
Date of service: 04/18/24 Time of Service: 13:43 Follow Up Plan: Urine culture growing pansensitive E. coli, susceptible to Macrobid which the patient was started on. Called the patient and she reports feeling improvement in her symptoms though endorses that her urine is still dark. Encourage good hydration and completion of her course of antibiotics. Patient had the opportunity to have all questions answered. Alley Olivares MD
== END 2024-04-15 10:24 | disposition home or self-care (01) ==
PROVIDERS: Emergency Provider Emergency Medicine; PCP Nurse Practitioner Family
DX: R30.0 Dysuria (principal); R39.15 Urgency of urination; N39.0 Urinary tract infection, site not specified; I10 Essential (primary) hypertension
CPT/HCPCS: 87077; 99283; 81003; 81015; 87086; 87186

== ENCOUNTER 2024-04-23 04:48 | Emergency (ER) | payer BC, SELFPAY ==
[2024-04-23 04:50] VITALS: BP 192/105; PULSE 67; RESP 18; TEMP 36.5; O2SAT 99
--- NOTE | 2024-04-23 05:10 | W.ED.GENAD ---
Discharge Plan Disposition Patient Disposition: Home Condition: Good Discharge Details Clinical Impression: Acute cystitis Primary Care Provider: Lenora Gracia ED Provider: Zara Owens Home Meds and New Rx's Prescriptions: New cefpodoxime 200 mg tablet 200 mg PO Q12H Qty: 26 0RF Rx Instructions: must administer with a meal/food Continued epinephrine 0.3 mg/0.3 mL auto-injector 0.3 mg IM ONCE Rx Instructions: as a single dose citalopram 10 mg tablet 40 mg PO HS simvastatin 40 MG tablet 40 mg PO QPM lisinopril 20 mg Tablet 20 mg PO HS hydrochlorothiazide 25 mg tablet 25 mg PO DAILY Patient Comments: TAKE ONE TABLET BY MOUTH EVERY MORNING bupropion HCl 150 mg tablet extended release 24 hr 150 mg PO DAILY Patient Comments: TAKE ONE TABLET BY MOUTH EVERY DAY Discharge Instructions Instructions: Urinary Tract Infection, Adult ED Additional Instructions: Cefpodoxime twice a day for the next 14 days. You can use the pyridine you were previously prescribed; follow the directions on the bottle. Call your primary care doctor on Wednesday to schedule an appointment for within the next 72 hours to followup on your visit here. At that visit please discuss your blood pressure which is high here in the ED today. Return to the emergency department for new or worsening symptoms including fever, flank pain, worsening pain, symptoms that have not began to improve by 48 hours, or if you have any other concerns. Referrals: Lenora Gracia [Primary Care Provider] - [facility] General Mode of arrival: ambulatory. Date/Time Provider Initiated Documentation: 04/23/24 04:57. Limitations to Documentation: no limitations. Information obtained by: patient and old records reviewed (ed visit, labs, cultures from one week prior). HPI Narrative: 64yo F with hx of HTN, HLD, presenting with dysuria, hematuria, and urinary frequency. First had symptoms one week ago, seen in this ED and found to have a UTI. Discharged on 5 day course of abx which she completed. Symptoms had resolved by the time she finished her antibiotics. One day after she began to notice mild symptoms again, worsening over the next day. Was out of state traveling/flying yesterday. Currently has burning pain with urination, mild suprapubic discomfort, and hematuria. No fevers, chills, nausea, vomiting, rash, flank pain, or vaginal discharge. Otherwise in her usual state of health. Urine cultures grew lion-sensitive ecoli, she was discharged on macrobid. Related Data Home Medications ?Medication ?Instructions ?Recorded ?Confirmed simvastatin 40 mg tablet 40 mg PO QPM 10/18/12 04/23/24 lisinopril 20 mg tablet 20 mg PO HS 08/11/18 04/23/24 citalopram 10 mg tablet 40 mg PO HS 05/08/21 04/23/24 epinephrine 0.3 mg/0.3 mL 0.3 mg IM ONCE 05/08/21 04/23/24 injection, auto-injector bupropion HCl 150 mg 24 hr tablet, 150 mg PO DAILY 04/15/24 04/23/24 extended release hydrochlorothiazide 25 mg tablet 25 mg PO DAILY 04/15/24 04/23/24 cefpodoxime 200 mg tablet 200 mg PO Q12H #26 tabs 04/23/24 Previous Rx's ?Medication ?Instructions ?Recorded cefpodoxime 200 mg tablet 200 mg PO Q12H #26 tabs 04/23/24 Allergies Allergy/AdvReac Type Severity Reaction Status Date / Time bee pollen (Bee Pollen) Allergy Severe anaphylacti Unverified 04/23/24 04:56 c clindamycin AdvReac RASH Verified 04/23/24 04:56 General Stated Complaint: Urinary DESIREE: 4 Review of Systems Narrative: see HPI Exam Narrative Exam Narrative: General: Alert, well appearing, well nourished, in no acute distress. Head: Normocephalic, atraumatic Neck: Trachea midline, ?Neck supple. ENT: ?MMM.? No oropharygeal lesions or exudate. Cardiac: ?RRR, no murmurs appreciated Resp: No respiratory distress. CTAB. Abd: ?Soft, non-distended, nontender : ?No suprapubic tenderness. No CVA tenderness. Extremities: ?No deformities.? No peripheral edema. Neurologic: GCS 15. ? Moves all extremities freely against gravity Course Vital Signs Vital signs: Vital Signs Temperature 36.5 C 04/23/24 04:50 Pulse 67 04/23/24 04:50 Respiratory Rate 18 04/23/24 04:50 Blood Pressure 192/105 H 04/23/24 04:50 Pulse Oximetry 99 04/23/24 04:50 Temperature 36.5 C 04/23/24 04:50 Temperature Source Temporal Artery Scan 04/23/24 04:50 Pulse 67 04/23/24 04:50 Respiratory Rate 18 04/23/24 04:50 Respiratory Effort Normal, Non-Labored 04/23/24 04:57 Blood Pressure 192/105 H 04/23/24 04:50 Blood Pressure Position Sitting 04/23/24 04:50 Pulse Oximetry 99 04/23/24 04:50 Oxygen Delivery Method Room Air 04/23/24 04:50 Oxygen Flow Rate 0 04/23/24 04:50 Pain Level 6 04/23/24 04:57 Medical Decision Making 64yo F with hx of HTN, HLD, presenting with dysuria, hematuria, and urinary frequency. First had symptoms one week ago, seen in this ED and found to have lion-sensitive e.coli UTI, discharged on 5 day course of abx which she completed. Symptoms resolved but then began to recur one day after completing her antibiotics. Systemically well, no fevers, chills, nausea, or flank pain. Hypertensive on arrival (pt states she did not take her pm dose of lisinopril yesterday; will give here this morning), vital signs otherwise reassuring. No CVA tenderness on exam. Not suggestive of sepsis, pyelonephritits, ovarian pathology; would not get bloodwork or CT/US imaging. Likely recurrent UTI; will plan to treat with 14 day course of cefopodoxime for complicated cystitis. Repeat UA obtained and is consistent with infection; sent for culture. Discharged home; discharge instructions and return precautions were reviewed with patient who verbalized understanding. All questions were answered and she is in full agreement with the plan. Medical Records Medical records reviewed: Yes I reviewed the patient's medical records. Lab Data Lab results reviewed: Yes I reviewed the patient's lab results. Labs: 04/23/24 04:53 Urine - Clean Catch Urine Culture - Pending Laboratory Tests Range/Units 04/23/24 04:53 Urine Color (Yellow) Yellow Urine Clarity (Clear) Sl Cloudy Urine pH (5-8) 6.5 Ur Specific [place] (1.005-1.025) 1.025 Urine Protein (Neg-Trace) mg/dL 100 H Urine Ketones (Negative) mg/dL Negative Urine Blood (Negative) Large H Urine Nitrite (Negative) Negative Urine Bilirubin (Negative) Negative Urine Urobilinogen (Up to 0.2) mg/dL 0.2 Ur Leukocyte Esterase (Negative) Small H Urine RBC (0-2) HPF >50 H Urine WBC (0-5) HPF >50 H Ur Epithelial Cells (Negative) HPF Few Urine Crystals (Negative) HPF Negative Urine Bacteria (Negative) HPF Moderate Urine Casts (Negative) LPF Negative Urine Mucus (Negative) Negative Ur Culture Indicated? C&S Done As Ordered Urine Glucose (Negative) mg/dL Negative Quality:SDOH Health Related Social Needs: No Data to Display PFSH All Active Problems (Updated 04/23/24 @ 05:11 by Zara wOens MD) Acute cystitis (Acute) UTI (urinary tract infection) (Acute) Reactive airways dysfunction syndrome (Acute) Prediabetes (Acute) Screening for colon cancer (Acute) Medical History (Updated 04/23/24 @ 05:11 by Zara Owens MD) Encounter for screening for other viral diseases Depression Hypertension High cholesterol Surgical History (Updated 05/08/21 @ 10:55 by Lidia Kohler RN) Status post total left knee replacement (05/30/19) Hx of dilation and curettage Family History Father No problems noted. Social History Smoking/Tobacco Use Status: Former Tobacco Use Smoking risk assessment performed?: Yes Alcohol Intake: current Alcohol Intake frequency: 0-2 drinks per day Drug use: Occasionally Substance use type: marijuana Housing: house Current gender identity: female Do you feel safe at home: Yes Do you feel safe in your relationship?: Yes
[2024-04-23 05:19] LABS: Bilirubin Negative (Negative); Blood Large (Negative); Clarity Sl Cloudy (Clear); Glucose Negative (Negative); Ketones Negative (Negative); Leukocyte Esterase Small (Negative); Nitrite Negative (Negative); Specific Gravity 1.025 (1.005-1.025); Urobilinogen 0.2 mg/dL (Up to 0.2); pH 6.5 (5-8)
[2024-04-23 05:25] LABS: Bacteria Moderate HPF (Negative); C & S Indicated? C&S Done As Ordered; Casts Negative LPF (Negative); Crystals Negative HPF (Negative); Epithelial Cells Few HPF (Negative); Mucus Negative (Negative); RBC >50 HPF (0-2); WBC >50 HPF (0-5)
[2024-04-23] MEDS: Cefpodoxime 200 MG TAB PO (05:30)
[2024-04-23] MEDS: Lisinopril 20 MG TAB PO (05:30)
[2024-04-23] MEDS: Cefpodoxime 200 MG TAB 400 MG PO (05:30)
== END 2024-04-23 05:34 | disposition home or self-care (01) ==
PROVIDERS: Emergency Provider Student in an Organized Health Care Education/Training Program; PCP Nurse Practitioner Family
DX: R30.0 Dysuria (principal); R39.15 Urgency of urination; R10.30 Lower abdominal pain, unspecified; N30.00 Acute cystitis without hematuria; I10 Essential (primary) hypertension; R35.0 Frequency of micturition; E78.5 Hyperlipidemia, unspecified
CPT/HCPCS: 87077; 99283; 81003; 81015; 87086; 87186

== ENCOUNTER 2024-04-28 15:20 | Outpatient (REF) | payer BC, SELFPAY ==
[2024-04-28 19:50] LABS: ALT 28 U/L (14-59); AST 26 U/L (15-37); Alkaline Phosphatase 68 U/L (46-116); Anion Gap 8.1 mmol/L (3-11); BUN 21 mg/dL (7-18); Bilirubin, Total 0.21 mg/dL (0.2-1.0); CO2 28.9 mmol/L (21.0-32.0); Calcium 9.3 mg/dL (8.5-10.1); Chloride 103 mmol/L (98-107); Glucose 100 mg/dL (74-106); Potassium 4.6 mmol/L (3.5-5.1); Sodium 140 mmol/L (136-145); Total Protein 7.3 g/dL (6.4-8.2)
== END 2024-04-28 15:21 | disposition home or self-care (01) ==
LOC: NCHCN 15:20
PROVIDERS: PCP Nurse Practitioner Family; Visit Provider Nurse Practitioner Family
DX: I10 Essential (primary) hypertension (principal)
CPT/HCPCS: 80053

== ENCOUNTER 2024-11-22 02:32 | Outpatient (CLI) | payer BC, SELFPAY ==
--- NOTE | 2024-11-22 | DI.DEXA_ITS ---
Exam(s) XR DEXA BONE DENSITY W/WO PUJA EXAM: XR DEXA BONE DENSITY W/WO PUJA CLINICAL HISTORY: MENOPAUSE, Z78.0 TECHNIQUE: Routine DEXA evaluation of the lumbar spine, hip, or forearm. COMPARISON: No exams were available for comparison FINDINGS: Performed on a Hologic unit. Lateral image: No compression fracture evident. Lumbar Spine total T-score: -0.8 which is within normal range. Hip total T-score:0.7 which is within normal range. Independent reading at the level of the femoral neck yields T-score of -0.9 which is within normal range. Forearm total T-score: 0.3 which is within normal range. IMPRESSION: Bone mineral density measures in the normal range. Fracture risk is low. Note: Any spine fracture indicates 5x risk for subsequent spine fracture and 2x risk for subsequent hip fracture. World Health Organization criteria for BMD interpretation classify patients: Normal...... T- Score at or above -1.0 Osteopenic... T- Score between -1.0 and -2.5 Osteoporosis... T-Score at or below -2.5
== END 2024-11-22 02:52 ==
LOC: DI 02:32
PROVIDERS: PCP Nurse Practitioner Family; Visit Provider Family Medicine
DX: Z78.0 Asymptomatic menopausal state (principal); Z13.820 Encounter for screening for osteoporosis
CPT/HCPCS: 77080

== ENCOUNTER 2024-12-12 01:51 | Outpatient (CLI) | payer BC, SELFPAY ==
--- NOTE | 2024-12-12 | DI.MAMMO_ITS ---
Exam(s) MAMMO SCREENING EXAM: MAMMO SCREENING CLINICAL HISTORY: screening Z12.31 TECHNIQUE: Bilateral full field digital CC and MLO mammographic images were obtained with 3D tomosynthesis and utilizing computer aided detection (CAD). COMPARISON: Comparison is made with prior examinations. FINDINGS: Masses/Architectural Distortion: No suspicious masses or areas of architectural distortion are present. Microcalcifications: No suspicious pleomorphic-type are seen. Skin Thickening/Nipple Retraction: None. IMPRESSION: 1. No significant interval change with no specific features of malignancy noted. 2. Unless there is more urgent need, screening mammography is recommended, as per [employer] guidelines. BI-RADS Category 1 - Negative Breast Density - Category B - There are scattered areas of fibroglandular density. Breast density Category C or D implies that the patient has dense breast tissue. Dense breast tissue can make it harder to find cancer on a mammogram. Dense breast tissue is also associated with an increased risk of breast cancer. This information about the result of the mammogram report was provided to the patient to raise their awareness. Use this report when you speak with the patient about their risks for breast cancer, which includes their family history. At that time, you may recommend additional screening tests (Ultrasound or MRI) as these tests may add significant information. A negative radiographic report should not delay biopsy if a dominant or clinically suspicious mass is present. Up to ten percent of cancers are not identified on mammography. A negative report may reinforce clinical impression. Adenosis and dense breasts may obscure an underlying neoplasm. False positive reports average 6 to 10%. Patient will receive a letter notifying them of these results.
== END 2024-12-12 02:11 ==
LOC: DI 01:52
PROVIDERS: PCP Nurse Practitioner Family; Visit Provider Family Medicine
DX: Z12.31 Encounter for screening mammogram for malignant neoplasm of breast (principal); R92.323 Mammographic fibroglandular density, bilateral breasts
CPT/HCPCS: 77063; 77067

== ENCOUNTER 2025-02-20 19:23 | Outpatient (REF) | payer BC, SELFPAY ==
[2025-02-20 19:39] LABS: HCT 33.5 % (36.0-46.0); HGB 10.7 g/dL (11.2-15.7); MCH 24.8 pg (27.0-33.0); MCHC 31.9 % (32.0-36.0); MCV 78 fL (80-95); MPV 10.5 fL (8.0-11.0); Platelet Count 378 10^3/uL (130-400); RBC 4.31 10^6/uL (3.93-5.22); RDW 17.4 % (11.7-14.6); RDW-SD 49.4 fL; WBC 4.99 10^3/uL (4.4-10.8)
[2025-02-20 20:15] LABS: ALT 25 U/L (14-59); AST 25 U/L (15-37); Albumin 4.3 g/dL (3.4-5.0); Alkaline Phosphatase 54 U/L (46-116); Anion Gap 9.0 mmol/L (3-11); BUN 16 mg/dL (7-18); Bilirubin, Total 0.4 mg/dL (0.2-1.0); CO2 28.0 mmol/L (21.0-32.0); Calcium 9.2 mg/dL (8.5-10.1); Chloride 100 mmol/L (98-107); Cholesterol 208 mg/dL (<200); Estimated GFR 63.30 (mL/min/1.73m2); Glucose 94 mg/dL (74-106); Potassium 5.0 mmol/L (3.5-5.1); Sodium 137 mmol/L (136-145); Total Protein 7.0 g/dL (6.4-8.2); Triglyceride 63 mg/dL (<150)
[2025-02-20 20:41] LABS: Hemoglobin A1C 6.0 % (<5.7)
[2025-02-21 04:56] LABS: Calculated LDL 103 mg/dL (<100); HDL Cholesterol 93 mg/dL (>or=50)
== END 2025-02-20 19:24 | disposition home or self-care (01) ==
LOC: NCHCN 19:23
PROVIDERS: PCP Nurse Practitioner Family
DX: Z00.00 Encounter for general adult medical examination without abnormal findings (principal); Z13.6 Encounter for screening for cardiovascular disorders; Z13.1 Encounter for screening for diabetes mellitus
CPT/HCPCS: 80053; 80061; 85027; 83036

== ENCOUNTER 2025-03-05 21:24 | Outpatient (REF) | payer BC, SELFPAY ==
[2025-03-05 22:11] LABS: Ferritin 6 ng/mL (8-252); Iron 24 ug/dL (50-170); Total Iron Binding Capacity 440 ug/dL (250-450)
== END 2025-03-05 21:25 | disposition home or self-care (01) ==
LOC: NCHCN 21:24
PROVIDERS: PCP Nurse Practitioner Family
DX: D50.9 Iron deficiency anemia, unspecified (principal)
CPT/HCPCS: 82728; 83540; 83550

== ENCOUNTER 2025-03-12 17:50 | Emergency (ER) | payer BC, SELFPAY ==
[2025-03-12] VITALS (38 sets, daily range): BP systolic 98–154; BP diastolic 74–94; PULSE 60–71; RESP 11–20; TEMP 36.6; O2SAT 92–100
--- NOTE | 2025-03-12 17:45 | RT.EKG_ITS ---
APPROVED REPORT Exam: Resting ECG Reason for Exam: dizzy Patient Location: E HR:70 bpm ECG Measurements Heart Rate 70 AXIS FL 130 P 46 QRSd 95 QRS 4 QT 413 T 36 QTc 447 Conclusion Sinus rhythm, rate 70 No interval abnormalities No STEMI No priors available for comparison
--- NOTE | 2025-03-12 18:15 | DI.CT_ITS ---
Exam(s) CT HEAD WO EXAM: CT HEAD WO CLINICAL HISTORY: headache, vertigo. TECHNIQUE: Imaging Protocol: Axial computed tomography images with coronal and sagittal reformatted images were created and reviewed COMPARISON: No exams were available for comparison FINDINGS: Ventricles and Extra axial spaces: Normal in size and morphology for the patient's age. Hemorrhage: None. Cerebral parenchyma: There is no evidence of an acute territorial infarct. There is no acute midline shift. Midline shift: None. Brainstem/Cerebellum: Normal. Calvarium: Normal. Visualized Paranasal sinuses/Mastoids: Clear. Soft Tissues: Unremarkable. Pituitary gland: Note is made of a partially empty sella. IMPRESSION: No acute intracranial process. RADIATION DOSE DELIVERED: 863.39mGy.cm Total DLP DATA REPOSITORY: All CT scans at this facility are submitted to the National Radiology Data Registry (NRDR) Dose Index Registry (DIR) with the [employer] (A[employer]). RADIATION OPTIMIZATION: All CT scans at this facility use at least one of these dose optimization techniques: automated exposure control; mA and/or kV adjustment per patient size (includes targeted exams where dose is matched to clinical indication); or iterative reconstruction.
--- NOTE | 2025-03-12 18:15 | DI.CT_ITS ---
Exam(s) CT ABDOMEN PELVIS W EXAM: CT ABDOMEN PELVIS W CLINICAL HISTORY: suprapubic pain, anemia, dizzy TECHNIQUE: Imaging Protocol: Axial computed tomography images with coronal and sagittal reformatted images were created and reviewed. CONTRAST MATERIAL: Intravenous: Omnipaque 350 Contrast volume:75 mL Oral: No COMPARISON: CT UPPER ABD W/WO CONTRAST(P) from 10/23/2011 FINDINGS: ABDOMEN: Lung Bases: No acute abnormality. There is a calcified granuloma in the left lower lobe. Liver: There is again seen a mass in the posterior segment of the right lobe of the liver which shows nodular peripheral enhancement on this examination. The enhancement is I so dense to the aorta. The finding is most suggestive of a hepatic hemangioma. There are no suspicious hepatic masses present. Portal, Superior Mesenteric, and Splenic Veins: Unremarkable. Gallbladder and Biliary Tract: No radiodense calculus or dilation. Pancreas: Normal density, no abnormal calcifications or inflammatory process. Spleen: Normal. Adrenals: No masses seen. Kidneys: Normal size, contour and axis. No radiodense stones or obstructive uropathy. No masses seen. Abdominal Aorta: Abdominal portion non-dilated. Mild atherosclerotic calcification is present. Bowel: There are colonic diverticula but no evidence of diverticulitis. There is no evidence of bowel wall thickening or obstruction. Appendix is unremarkable. Peritoneal Cavity: No ascites, collection or mesenteric inflammatory response. No free air. Lymph Nodes: Within normal limits. Bones: Within normal limits for the patient's age. Soft Tissues: Unremarkable. PELVIS: Bladder: The bladder is incompletely distended but grossly unremarkable. Reproductive Organs: Unremarkable as visualized. Lymph Nodes: Within normal limits. Bones: Within normal limits for the patient's age. IMPRESSION: 1. No acute abdominal or pelvic process. 2. Colonic diverticulosis without evidence of acute diverticulitis. 3. Stable right hepatic hemangioma. This was present and evaluated on the CT scan from 10/23/2011. 4. The preliminary [facility] report was reviewed. RADIATION DOSE DELIVERED: 549.79mGy.cm Total DLP DATA REPOSITORY: All CT scans at this facility are submitted to the National Radiology Data Registry (NRDR) Dose Index Registry (DIR) with the [employer] (ACR). RADIATION OPTIMIZATION: All CT scans at this facility use at least one of these dose optimization techniques: automated exposure control; mA and/or kV adjustment per patient size (includes targeted exams where dose is matched to clinical indication); or iterative reconstruction.
[2025-03-12 18:20] LABS: Abs Immature Grans 0.01 10^3/uL (0.0-0.06); HCT 35.7 % (36.0-46.0); HGB 11.2 g/dL (11.2-15.7); Immature Grans % 0.2 %; MCH 24.7 pg (27.0-33.0); MCHC 31.4 % (32.0-36.0); MCV 79 fL (80-95); MPV 9.7 fL (8.0-11.0); Platelet Count 333 10^3/uL (130-400); RBC 4.54 10^6/uL (3.93-5.22); RDW 19.2 % (11.7-14.6); RDW-SD 52.4 fL; WBC 4.93 10^3/uL (4.4-10.8)
[2025-03-12 18:32] LABS: INR 1.1 (0.9-1.1); Prothrombin Time 10.8 sec (9.1-11.1)
[2025-03-12] MEDS: Lactated Ringers 1,000 ML 1000 ML IV (18:35)
[2025-03-12 18:44] LABS: ALT 23 U/L (14-59); AST 20 U/L (15-37); Albumin 4.0 g/dL (3.4-5.0); Alkaline Phosphatase 52 U/L (46-116); Anion Gap 11.7 mmol/L (3-11); BUN 15 mg/dL (7-18); Bilirubin, Total 0.4 mg/dL (0.2-1.0); CO2 26.3 mmol/L (21.0-32.0); Calcium 9.6 mg/dL (8.5-10.1); Chloride 100 mmol/L (98-107); Estimated GFR 38.67 (mL/min/1.73m2); Glucose 147 mg/dL (74-106); Magnesium 2.1 mg/dL (1.8-2.4); Potassium 4.0 mmol/L (3.5-5.1); Sodium 138 mmol/L (136-145); TSH (W/Ref FT4) 4.06 uIU/mL (0.36-3.74); Total Protein 7.6 g/dL (6.4-8.2); Troponin I 6 ng/L (<or=51)
[2025-03-12] MEDS: Omnipaque 350 MG/ML 100 ML BTL IJ (19:07)
[2025-03-12] MEDS: Normal Saline Flush 10 ML SYR IVP (19:09)
[2025-03-12] MEDS: Normal Saline - Diluent 50 ML VIAL IJ (19:09)
[2025-03-12 19:44] LABS: Troponin I 7 ng/L (<or=51)
--- NOTE | 2025-03-12 19:56 | W.ED.GENAD ---
Discharge Plan Disposition Patient Disposition: Home Condition: Stable Discharge Details Clinical Impression: Orthostasis, Iron deficiency anemia Primary Care Provider: Lenora Gracia ED Provider: Alley Olivares Home Meds and New Rx's Prescriptions: No Action epinephrine 0.3 mg/0.3 mL auto-injector 0.3 mg IM ONCE Rx Instructions: as a single dose citalopram 10 mg tablet 40 mg PO HS simvastatin 40 MG tablet 40 mg PO QPM omeprazole 20 mg capsule,delayed release(DR/EC) 20 mg PO DAILY Patient Comments: TAKE ONE CAPSULE BY MOUTH EVERY DAY lisinopril 20 mg Tablet 20 mg PO HS hydrochlorothiazide 25 mg tablet 25 mg PO DAILY Patient Comments: TAKE ONE TABLET BY MOUTH EVERY MORNING bupropion HCl 150 mg tablet extended release 24 hr 150 mg PO DAILY Patient Comments: TAKE ONE TABLET BY MOUTH EVERY DAY Discharge Instructions Instructions: Orthostatic hypotension Additional Instructions: You were seen in the emergency department today for evaluation of dizziness, near syncope, and iron deficiency anemia. In our department you had a full physical examination performed, and had CT scans of your brain that did not show any intracranial hemorrhage or other abnormalities to explain your headache and dizziness, and had a CT scan of your abdomen that did not show any new abnormalities for you. You did have evidence of the known hemangioma of your liver. You received IV fluids to good effect, your blood pressure improved and your dizziness got much better. I am concerned for orthostatic hypotension which is often related to dehydration. Your anemia is very slightly improved, 11.2 today, you should continue to take your iron and follow-up with your outpatient providers. I did place a referral for general surgery for endoscopy/colonoscopy given the concern for potential GI sources of blood loss. Your kidney function was slightly worsened today than your normal, which can also be due to dehydration. I definitely want you to increase your hydration when you go home. The remainder of your laboratory studies were quite reassuring. Please follow-up with your primary care provider in the next few days to discuss this visit and any symptoms that change, worsen, or persist. Thank you for allowing us to be part of your care. Stand Alone Forms: Work Release Referrals: GENERAL SURG,[facility] [OTHER, Surgery] Fausto Robles MD [ [facility] STAFF PHYSICIAN, Surgery] [facility] General Mode of arrival: ambulatory. Date/Time Provider Initiated Documentation: 03/12/25 18:02. Limitations to Documentation: no limitations. Information obtained by: patient, family and old records reviewed. HPI Narrative: This is a 65-year-old female patient with a recent diagnosis of iron deficiency anemia, and history of prediabetes, presenting for evaluation of dizziness and tunnel vision. She reports that she has had excessive fatigue for the last several days, has been sleeping more than typical, was recently started on iron supplement after labs revealed iron deficiency anemia. She states that today she was standing in the shower, and became very dizzy, had tunnel vision but did not lose consciousness or fall. She states that she went to lay down and had ongoing dizziness including a sensation like a spinning. This has since subsided, was worse with position changes, such as moving from sitting to standing. She took her pulse and blood pressure at home, noted her pulse to be high and her blood pressure to be low. States that she has had poor appetite, missed work due to her fatigue. The patient reports that she has not had any blood in her stool, did have some dark stools after initiation of the iron but did not have melena prior to that. Endorses some suprapubic abdominal pain. She is awaiting referral for endoscopy and scheduled appointment for her colonoscopy. No history of abdominal surgeries, no dysuria or hematuria Related Data Home Medications ?Medication ?Instructions ?Recorded ?Confirmed simvastatin 40 mg tablet 40 mg PO QPM 10/18/12 03/12/25 lisinopril 20 mg tablet 20 mg PO HS 08/11/18 03/12/25 citalopram 10 mg tablet 40 mg PO HS 05/08/21 03/12/25 epinephrine 0.3 mg/0.3 mL 0.3 mg IM ONCE 05/08/21 03/12/25 injection, auto-injector bupropion HCl 150 mg 24 hr tablet, 150 mg PO DAILY 04/15/24 03/12/25 extended release hydrochlorothiazide 25 mg tablet 25 mg PO DAILY 04/15/24 03/12/25 omeprazole 20 mg capsule,delayed 20 mg PO DAILY 03/12/25 03/12/25 release Allergies Allergy/AdvReac Type Severity Reaction Status Date / Time bee pollen (Bee Pollen) Allergy Severe anaphylacti Unverified 03/12/25 18:01 c clindamycin AdvReac RASH Verified 03/12/25 18:01 General Stated Complaint: Dizzy/Sync DESIREE: 3 Exam Narrative Exam Narrative: Gen: awake and alert, in no apparent distress. Appears well nourished. HEENT: PERRL, EOMs full and without nystagmus. External ears and nose normal, mucous membranes moist. Neck: Supple, full range of motion, no observable masses Lungs: No increased work of breathing CV: Heart with regular rate and rhythm. Strong and symmetrical radial pulses. Abdomen: Soft, nondistended, some tenderness to palpation over the suprapubic region without rigidity, rebound, or guarding. No rigidity, rebound tenderness, or guarding. MSK: No joint swelling, no redness. Full ROM without limitation, no external traumatic findings. Skin: No rashes or lesions to visualized skin. Normal color, warm, and dry. Neuro: Cranial nerves II-XII intact and symmetrical bilaterally. 5/5 strength in all muscle groups x4 extremities. No sensory deficits. Ambulates with steady gait. Psych: Appropriate for situation. Course Vital Signs Vital signs: Vital Signs Temperature 36.6 C 03/12/25 17:56 Pulse 71 03/12/25 17:56 Respiratory Rate 18 03/12/25 17:56 Blood Pressure 119/75 03/12/25 17:56 Pulse Oximetry 100 03/12/25 17:56 Temperature 36.6 C 03/12/25 17:56 Temperature Source Oral 03/12/25 17:56 Pulse 67 03/12/25 18:15 Pulse 67 03/12/25 18:15 Respiratory Rate 18 03/12/25 18:18 Respiratory Effort Normal, Non-Labored 03/12/25 18:18 Respiratory Depth Normal 03/12/25 18:18 Respiratory Pattern Normal 03/12/25 18:18 Blood Pressure 98/78 L 03/12/25 18:15 Blood Pressure Mean 83 03/12/25 18:15 Blood Pressure Position Sitting 03/12/25 17:56 Pulse Oximetry 99 03/12/25 18:15 Oxygen Delivery Method Room Air 03/12/25 17:56 Oxygen Flow Rate 0 03/12/25 17:56 Pain Level 0 03/12/25 17:56 Lab/Test Results Lab/Test Results: Laboratory Tests Range/Units 03/12/25 03/12/25 18:11 19:19 WBC (4.4-10.8) 10^3/uL 4.93 RBC (3.93-5.22) 10^6/uL 4.54 Hgb (11.2-15.7) g/dL 11.2 Hct (36.0-46.0) % 35.7 L MCV (80-95) fL 79 L MCH (27.0-33.0) pg 24.7 L MCHC (32.0-36.0) % 31.4 L RDW (11.7-14.6) % 19.2 H Plt Count (130-400) 10^3/uL 333 MPV (8.0-11.0) fL 9.7 Immature Gran % % 0.2 Neutrophils % % 50.7 Lymphocytes % % 34.7 Monocytes % % 12.0 Eosinophils % % 1.6 Basophils % % 0.8 Nucleated RBC % (0.0-0.3) % 0.0 Absolute Neutrophils (1.2-6.7) 10^3/uL 2.50 Absolute Lymphocytes (1.2-3.4) 10^3/uL 1.71 Absolute Monocytes (0.1-0.8) 10^3/uL 0.59 Absolute Eosinophils (0.0-0.7) 10^3/uL 0.08 Absolute Basophils (0.0-0.2) 10^3/uL 0.04 PT (9.1-11.1) sec 10.8 INR (0.9-1.1) 1.1 Sodium (136-145) mmol/L 138 Potassium (3.5-5.1) mmol/L 4.0 Chloride (98-107) mmol/L 100 Carbon Dioxide (21.0-32.0) mmol/L 26.3 Anion Gap (3-11) mmol/L 11.7 H BUN (7-18) mg/dL 15 Creatinine (0.55-1.02) mg/dL 1.5 H Est GFR (CKD-EPI 2020) (mL/min/1.73m2) 38.67 Glucose (74-106) mg/dL 147 H Calcium (8.5-10.1) mg/dL 9.6 Magnesium (1.8-2.4) mg/dL 2.1 Total Bilirubin (0.2-1.0) mg/dL 0.4 AST (15-37) U/L 20 ALT (14-59) U/L 23 Alkaline Phosphatase (46-116) U/L 52 Troponin I (<or=51) ng/L 6 7 Total Protein (6.4-8.2) g/dL 7.6 Albumin (3.4-5.0) g/dL 4.0 TSH (0.36-3.74) uIU/mL 4.06 H Free T4 (0.76-1.46) ng/dL 0.81 Medical Decision Making This is a 65-year-old female patient presenting for evaluation of lightheadedness, tunnel vision, and excessive fatigue. Differential includes but is not limited to orthostasis, vasovagal syndrome, anemia, dehydration, kidney injury, liver disease, electrolyte derangement. The patient does describe some potential vertigo, does not have any focal neurodeficits or ongoing vertigo at this time, though I did consider intracranial hemorrhage, stroke, mass effect. Considered ACS, arrhythmia, and intra-abdominal pathology including GI bleed, GERD, PUD, urinary tract infection. EKG obtained, shows normal sinus rhythm without ischemia, interval abnormality, or ectopy. We will obtain a CT of the brain, as well as the abdomen and pelvis. Will provide the patient with a liter of IV fluids given her soft blood pressure and history concerning for orthostasis. I will obtain labs to include CBC, CMP, magnesium, troponin, TSH, urinalysis. -I reviewed the patient's laboratory studies, which do show a very slight improvement in her anemia to 11.2 today, though still very slightly microcytic compared to priors. No leukocytosis or thrombocytopenia. Chemistry panel without electrolyte derangements, but the patient's creatinine is slightly elevated to 1.5 today compared to priors. No liver dysfunction, troponin is negative and without interval increase on 1 hour delta recheck. TSH is very slightly above normal limits but her free T4 is normal. Urinalysis with small proteinuria but otherwise no evidence for infection or hematuria. I reviewed the CT imaging and the radiology reports. There is no evidence of intracranial hemorrhage, mass effect, or infarct. She has no acute findings on her CT abdomen pelvis to suggest GI bleed, appendicitis, diverticulitis, mesenteric ischemia, etc. She did have incidental note made of a hemangioma of which she was already aware. On reassessment, the patient had negative orthostatic vital signs and has had improvement in her dizziness. I am most concerned for orthostasis as the cause of her symptoms today. She did have a mild headache for which I provided her with Tylenol and ibuprofen. A referral was placed to general surgery for endoscopy and colonoscopy to continue the workup into her new iron deficiency anemia. She is already on a proton pump inhibitor and has H. pylori testing pending in the outpatient environment. At this time, the patient has had a full medical evaluation and is safe for discharge to home. They are hemodynamically stable, ambulatory, and tolerating PO. They are understanding of the follow-up plan and return precautions. They left our facility without incident. Alley Olivares MD PFSH All Active Problems (Updated 03/12/25 @ 21:09 by Alley Olivares MD) Iron deficiency anemia (Acute) Orthostasis (Acute) Reactive airways dysfunction syndrome (Acute) Prediabetes (Acute) Screening for colon cancer (Acute) Medical History (Updated 03/12/25 @ 21:09 by Alley Olivares MD) Encounter for screening for other viral diseases Depression Hypertension High cholesterol Surgical History (Updated 05/08/21 @ 10:55 by Lidia Kohler RN) Status post total left knee replacement (05/30/19) Hx of dilation and curettage Family History Father No problems noted. Social History Smoking/Tobacco Use Status: Former Tobacco Use Smoking risk assessment performed?: Yes Alcohol Intake: current Alcohol Intake frequency: 0-2 drinks per day Drug use: Occasionally Substance use type: marijuana Housing: house Current gender identity: female Do you feel safe at home: Yes Do you feel safe in your relationship?: Yes
[2025-03-12 20:00] LABS: Glucose Negative (Negative)
[2025-03-12 20:11] LABS: RBC 0-2 HPF (0-2)
--- NOTE | 2025-03-12 20:40 | DI.VRAD_ITS ---
PROCEDURE INFORMATION: Exam: CT Head Without Contrast Exam date and time: 03/12/2025 7:00 PM Age: 65 years old Clinical indication: Other: Headache, vertigo TECHNIQUE: Imaging protocol: Computed tomography of the head without contrast. Radiation optimization: All CT scans at this facility use at least one of these dose optimization techniques: automated exposure control; mA and/or kV adjustment per patient size (includes targeted exams where dose is matched to clinical indication); or iterative reconstruction. COMPARISON: No relevant prior studies available. FINDINGS: Brain: Normal. No hemorrhage. Unremarkable white matter. No mass effect. Cerebral ventricles: No ventriculomegaly. Paranasal sinuses: Visualized sinuses are unremarkable. No fluid levels. Mastoid air cells: Visualized mastoid air cells are well aerated. Bones: Unremarkable. No acute fracture. Soft tissues: Unremarkable. IMPRESSION: No acute intracranial abnormality. Dictated and Authenticated by: Miguel Coombs MD. Orderin [facility] [address] Hager MD
--- NOTE | 2025-03-12 20:47 | DI.VRAD_ITS ---
PROCEDURE INFORMATION: Exam: CT Abdomen And Pelvis With Contrast Exam date and time: 03/12/2025 7:04 PM Age: 65 years old Clinical indication: Abdominal pain; Localized; Anemia, dizzy, suprapubic pain TECHNIQUE: Imaging protocol: Computed tomography of the abdomen and pelvis with contrast. Total images: 296 Radiation optimization: All CT scans at this facility use at least one of these dose optimization techniques: automated exposure control; mA and/or kV adjustment per patient size (includes targeted exams where dose is matched to clinical indication); or iterative reconstruction. Contrast material: OMNIPAQUE 350; Contrast volume: 75 ml; Contrast route: INTRAVENOUS (IV); COMPARISON: No relevant prior studies available. FINDINGS: Lungs: Lung bases unremarkable. Liver: 5.5 cm lesion right hepatic lobe with nodular peripheral enhancement. Gallbladder and biliary ducts: No definite gallbladder wall thickening, gallstone or biliary dilatation. Pancreas: No mass or peripancreatic stranding. Spleen: No splenomegaly or splenic nodule. Adrenal glands: No adrenal nodule. Kidneys and ureters: No renal mass. No hydronephrosis. No renal or ureteral calculi. Stomach and bowel: No wall thickening or dilatation. Appendix: No evidence of appendicitis. Intraperitoneal space: No free air or free fluid. Vasculature: No abdominal aortic aneurysm. Lymph nodes: No significant adenopathy. Urinary bladder: No definite bladder wall thickening or stone. Reproductive: No significant finding. Bones/joints: No acute bony abnormality. Soft tissues: No significant finding. No abdominal wall hernia. IMPRESSION: 1. No acute intra-abdominal finding. 2. Probable large hepatic cavernous hemangioma. This can be confirmed with nonemergent MRI as felt clinically indicated. Dictated and Authenticated by: Dickson Evans MD. Orderin [facility] [address] Hager MD
[2025-03-12] MEDS: Ibuprofen 600 MG TAB PO (21:21)
[2025-03-12] MEDS: Acetaminophen 500 MG TAB 1000 MG PO (21:22)
== END 2025-03-12 21:37 | disposition home or self-care (01) ==
PROVIDERS: Emergency Provider Emergency Medicine; PCP Nurse Practitioner Family
DX: I95.1 Orthostatic hypotension (principal); D50.9 Iron deficiency anemia, unspecified; R42 Dizziness and giddiness
CPT/HCPCS: 36415; 80053; 93005; 96360; 99285; 70450; 74177; 81003; 81015; 83735; 84439; 84443; 84484; 85025; 85610; 93010; 99284; J3490

== ENCOUNTER 2025-03-16 14:10 | Outpatient (CLI) | payer BC, SELFPAY | END 2025-03-16 14:11 | disposition home or self-care (01) | LOC: LBO 14:11 | PROVIDERS: PCP Nurse Practitioner Family | DX: D50.9 Iron deficiency anemia, unspecified (principal) | CPT/HCPCS: 83013 ==

== ENCOUNTER 2025-03-22 09:57 | Day surgery (SDC) | payer BC, SELFPAY ==
[2025-03-22 10:27] VITALS: BP 126/85; PULSE 76; RESP 18; TEMP 36.5; O2SAT 100
[2025-03-22] MEDS: Lactated Ringers 1,000 ML 80 ML IV (10:45)
--- NOTE | 2025-03-22 10:48 | W.ANESPRE ---
General Info Date of Service Date Performed: 03/22/25 Height: 5 ft 3 in Weight: 74.3 kg Body Mass Index (BMI): 29.0 Surgical Procedure: Operation Date: 03/22/25 11:20 Proposed Procedure Side Surgeon p Colonoscopy/Gastroscopy Martha Matamoros MD Meds Allergies and Home Medications Allergies Allergy/AdvReac Type Severity Reaction Status Date / Time bee pollen (Bee Pollen) Allergy Severe anaphylacti Verified 03/22/25 10:22 c clindamycin AdvReac RASH Verified 03/22/25 10:22 Home Medication Medication Instructions Recorded simvastatin 40 mg tablet 40 mg PO QPM 10/18/12 lisinopril 20 mg tablet 20 mg PO HS 08/11/18 citalopram 10 mg tablet 40 mg PO HS 05/08/21 epinephrine 0.3 mg/0.3 mL 0.3 mg IM ONCE 05/08/21 injection, auto-injector bupropion HCl 150 mg 24 hr tablet, 150 mg PO DAILY 04/15/24 extended release hydrochlorothiazide 25 mg tablet 25 mg PO DAILY 04/15/24 omeprazole 20 mg capsule,delayed 20 mg PO DAILY 03/12/25 release bisacodyl 5 mg tablet,delayed 5 mg PO ONCE Colonoscopy Bowel 03/19/25 release Prep #4 tabs polyethylene glycol 3350 17 238 g PO ONCE #238 grams 03/19/25 gram/dose oral powder ferrous sulfate 325 mg (65 mg 325 mg PO DAILY 03/22/25 iron) tablet (Feosol) Current Visit Medications: Current Medications Generic Name Dose Route Start Last Admin Trade Name Freq PRN Reason Stop Dose Admin Ringer's Solution 1,000 mls @ 80 mls/hr 03/22/25 06:00 03/22/25 10:45 IV 03/22/25 23:59 80 mls/hr INFUSION CAL Administration IV Miscellaneous Supplies 1 each 03/22/25 06:00 Iv Access IV 03/22/25 23:59 DIRECTED CAL Sodium Biphosphate/Sodium Phosphate 133 ml 03/22/25 06:00 Na Phosphate Enema-Adult 133 Ml Btl MD 03/22/25 23:59 DIRECTED PRN Sodium Chloride 0 ml 03/22/25 06:00 Normal Saline Flush 10 Ml Syr IV 03/22/25 23:59 PRN PRN Sodium Chloride 0 ml 03/22/25 06:00 Normal Saline 10 Ml Vial IJ 03/22/25 23:59 DIRECTED PRN Sterile Water 0 ml 03/22/25 06:00 Water,Injection,Sterile 10 Ml Vial IJ 03/22/25 23:59 DIRECTED PRN PFSH Active Problems Active Problems: Problem Status Onset Code Iron deficiency anemia Acute D50.9 Orthostasis Acute I95.1 Reactive airways dysfunction syndrome Acute J68.3 Prediabetes Acute R73.03 Screening for colon cancer Acute Z12.11 Medical History Medical History Encounter for screening for other viral diseases Depression Hypertension High cholesterol Surgical History Surgical History Status post total left knee replacement (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 Marijuana: October, Vital Signs and Lab Results Vital Signs Most Recent Vital Signs in EMR: Most Recent Vital Signs Temp Pulse Resp BP Pulse Ox 36.5 C 76 18 126/85 100 03/22/25 10:27 03/22/25 10:27 03/22/25 10:27 03/22/25 10:27 03/22/25 10:27 Lab Results Complete Blood Count: WBC, (4.4-10.8) 4.93 10^3/uL 03/12/25, 18:11 RBC, (3.93-5.22) 4.54 10^6/uL 03/12/25, 18:11 Hgb, (11.2-15.7) 11.2 g/dL 03/12/25, 18:11 Hct, (36.0-46.0) 35.7 % L 03/12/25, 18:11 Plt Count, (130-400) 333 10^3/uL 03/12/25, 18:11 Complete Metabolic Panel: Sodium, (136-145) 138 mmol/L 03/12/25, 18:11 Potassium, (3.5-5.1) 4.0 mmol/L 03/12/25, 18:11 Chloride, (98-107) 100 mmol/L 03/12/25, 18:11 Carbon Dioxide, (21.0-32.0) 26.3 mmol/L 03/12/25, 18:11 BUN, (7-18) 15 mg/dL 03/12/25, 18:11 Creatinine, (0.55-1.02) 1.5 mg/dL H 03/12/25, 18:11 Est GFR (CKD-EPI 2020), (mL/min/1.73m2) 38.67 03/12/25, 18:11 Magnesium, (1.8-2.4) 2.1 mg/dL 03/12/25, 18:11 Calcium, (8.5-10.1) 9.6 mg/dL 03/12/25, 18:11 Albumin, (3.4-5.0) 4.0 g/dL 03/12/25, 18:11 Glucose, (74-106) 147 mg/dL H 03/12/25, 18:11 Hemoglobin A1c, (<5.7) 6.0 % H 02/20/25, 16:30 Liver Function Panel: ALT, (14-59) 23 U/L 03/12/25, 18:11 AST, (15-37) 20 U/L 03/12/25, 18:11 Coagulation Panel: INR, (0.9-1.1) 1.1 03/12/25, 18:11 PT, (9.1-11.1) 10.8 sec 03/12/25, 18:11 Cardiac Panel: Troponin I, (<or=51) 7 ng/L 03/12/25 Thyroid Panel: TSH, (0.36-3.74) 4.06 uIU/mL H 03/12/25, 18:11 Imaging and Studies Imaging and Studies Study information below may be from another EMR and interpreted by another provider. Please see original notes in EMR for more complete details. EKG Summary: 03/12/25 Conclusion Sinus rhythm, rate 70 No interval abnormalities No STEMI No priors available for comparison Anesthesia Assessment and Plan Anesthesia History Personal History: No History of Anesthesia Complications Family History: No Family History of Anesthesia Complications Exercise Tolerance Exercise Tolerance: Metabolic Equivalents<4 (due to recent fatigue) Pertinent Negatives Pertinent Negatives: No Major Cardiovascular Symptoms or Complaints and No Major Pulmonary Symptoms or Complaints Cardiac & Pulmonary Exam Cardiac Exam: Normal S1/S2 Heart Sounds Pulmonary Exam: Clear Bilateral Breath Sounds Implantable Cardiac Device Does patient have a Pacemaker or an ICD?: No Airway Exam Known Difficult Airway: No Mallampati Class: 2 Mouth Opening: Normal (> 3cm) Thyromental Distance: Less than 3 cm Neck Range of Motion: Full ROM Neck Circumference: Normal Teeth Condition: Normal Dentition ASA Classification ASA Score: ASA 3 Emergency Case?: No NPO Status NPO Status: NPO Clears >2 hours, Solids >8 hours Anesthesia Plan Resuscitation Status: Full Code Anesthesia Technique: General Anesthesia Airway Planned: Natural Airway Monitors Used: Standard Monitors
[2025-03-22 10:58] VITALS: BMI 29.0
--- NOTE | 2025-03-22 11:54 | PDOC.DSDIS_ITS ---
Date of service: 03/22/25 Discharge Plan Disposition Patient Disposition: Home Condition: Stable Discharge Details Attending Provider: Martha Matamoros Primary Care Provider: Marsha Muhammad Home Meds and New Rx's Prescriptions: New pantoprazole 40 mg tablet,delayed release (DR/EC) 40 mg PO DAILY Qty: 90 3RF Continued epinephrine 0.3 mg/0.3 mL auto-injector 0.3 mg IM ONCE Rx Instructions: as a single dose citalopram 10 mg tablet 40 mg PO HS simvastatin 40 MG tablet 40 mg PO QPM ferrous sulfate [Feosol] 325 mg (65 mg iron) tablet 325 mg PO DAILY lisinopril 20 mg Tablet 20 mg PO HS hydrochlorothiazide 25 mg tablet 25 mg PO DAILY Patient Comments: TAKE ONE TABLET BY MOUTH EVERY MORNING bupropion HCl 150 mg tablet extended release 24 hr 150 mg PO DAILY Patient Comments: TAKE ONE TABLET BY MOUTH EVERY DAY Discontinued bisacodyl 5 mg tablet,delayed release (DR/EC) 5 mg PO ONCE Qty: 4 0RF Rx Instructions: Per Colonoscopy bowel prep instructions polyethylene glycol 3350 17 gram/dose powder 238 g PO ONCE Qty: 238 0RF Rx Instructions: For Colonoscopy bowel prep, as directed by office omeprazole 20 mg capsule,delayed release(DR/EC) 20 mg PO DAILY Patient Comments: TAKE ONE CAPSULE BY MOUTH EVERY DAY Discharge Instructions Additional Instructions: EGD shows a medium sized hiatal hernia that is causing uncontrolled reflux and esophagus irritation. It has also caused some mild erosions at the top of the stomach. This type of hernia is most often treated successfully with a better acid syeda. I am prescribing pantoprazole 40mg daily, and I want you to start it now instead of omeprazole. We will reassess your symptoms in office in 4 weeks, I expect you will notice a lot of improvement on that. Office follow up 04/18/25 at 8:30am. Colonoscopy with one small polyp and a few diverticula only. Timing of next colonoscopy will depend on type of polyp it was. I will notify you by mail in 2- 4 weeks when I have the result. I can tell you today the polyp is tiny and benign. Diverticulosis of the rectum noted, no diverticulitis (infection) present. Take a daily fiber supplement and eat a high fiber diet to prevent problems and progression of diverticulosis. No clear cause for anemia or iron deficiency seen, though the stomach erosions can certainly bleed and contribute to that. no sign of bleeding today. Activity:: Activity as Tolerated Diet:: As Tolerated Discharge Orders Discharge Orders: Discharge Order (Routine); Ordered 03/22/25 Ordered By: Martha Matamoros DS: Diagnosis Discharge Diagnosis (1) Iron deficiency anemia: Status: Acute (2) Rectal polyp: Status: Acute (3) Diverticulosis of rectum: Status: Acute (4) Acute Von lesion: Status: Acute (5) Gastric erosion determined by endoscopy: Status: Acute (6) Hiatal hernia with GERD and esophagitis: Status: Acute
--- NOTE | 2025-03-22 12:05 | BOWEL_PTH ---
PATIENT: Emi Alcala LOC: [facility] U#:[id number] AGE/SX: 65/F ROOM: RE03/22/[address]: Martha Matamoros MD : 1960 BED: DIS: 03/22/2025 SPEC #: [id number] RECD: 03/22/25 12:43 STATUS: ELANA REQ #: [id number] MARCELLE: 03/22/25 12:[address]: Martha Matamoros DEPT: Surgical Specimen RECD BY: Aida Chairez ENTERED: 03/22/25 12:44 SP TYPE: Bowel OTHR DR: EDU Cervantes Tissues: 1 - STOMACH BIOPSY 2 - ESOPHAGUS BIOPSY 3 - BIOPSY BOWEL Procedures: GROSS AND MICRO LEVEL 4 Comments: [id number]
--- NOTE | 2025-03-22 12:07 | W.PM.ENDDOP ---
Date of service: 03/22/25 Time of Service: 12:07 Endoscopy Report DATE OF PROCEDURE: 01/18/25 PRE-OP DIAGNOSIS: Refractory GERD, iron deficiency anemia POST-OP DIAGNOSIS: same (Hiatal hernia. Camerons erosions) PROCEDURE: EGD with biopsy SURGEON: Martha Matamoros ANESTHESIA TYPE: General:No Airway ESTIMATED BLOOD LOSS: 2 PATHOLOGY: other (1. antrum biopsy. 2. distal esophagus) COMPLICATIONS: None DISPOSITION: same day INDICATIONS: Evaluation of upper digestive system for dyspepsia cause or complications, anemia source PROCEDURE DESCRIPTION: Lubricated endoscope was passed through a bite block into the second portion of the duodenum. The endoscope was withdrawn and the duodenum stomach and esophageal mucosa examined. The duodenum appeared normal. There is no inflammation or ulceration or erosion. The antrum appears normal. The fundus appears normal. The cardia appears normal. No ulcers or erosions. No mass lesions. There is a moderate to large sized hiatal hernia noted upon retroflexion.There are linear erosions of the gastric mucosa high along the stomach near the GE junction, consistent with camerons erosions. No signs of recent or remote bleeding noted. The distal esophagus shows evidence of chronic inflammation without ulceration varices or candidiasis. The Z-line is regular and there is no evidence of Cardona's esophagus. The distal esophagus is narrow. Remainder of the esophagus appears normal Cold forceps biopsies obtained from the antrum and the distal esophagus for microscopic evaluation for H. pylori, esophagitis. The upper digestive system was desufflated and the endoscope withdrawn. No complications. Assessment and plan: Hiatal hernia with GERD and esophagitis Camerons erosions Symptoms attributable to uncontrolled reflux through her moderate to lare sized hiatal hernia. Discontinue omeprazole and start pantoprazole 40mg daily. Reassess symptoms in office in 4 weeks. Follow up biopsy results and treat H pylori if indicated. Camerons erosions could result in bleeding over time and may contribute to iron deficiency. Treating with pantoprazole is expected to heal these. Office follow up in 4 weeks.
[2025-03-22 12:28] VITALS: BP 91/61; PULSE 58; RESP 16; TEMP 36.2; O2SAT 95
--- NOTE | 2025-03-22 12:34 | W.COLOREPORT ---
Date of service: 03/22/25 Time of Service: 12:34 Colonoscopy Report Date of procedure: 03/22/25 Pre-op diagnosis general: iron deficiency anemia Post-op diagnosis procedure note: same (rectum polyp) Procedure: Colonoscopy with cold forceps polypectomy Surgeon: Martha Matamoros Anesthesia Type: General:No Airway Estimated blood loss (mL): 1 Pathology: none sent (rectum polyp) Complications: None Indications: screening for colorectal cancer Prep: Miralax/Dulcolax (excellent) Procedure Description: Informed consent was obtained and the patient was taken to the procedure area. The patient was placed in left lateral decubitus position on the procedure table. Timeout was performed. Anesthesia was induced. A lubricated colonoscope was inserted through the anus and passed to the cecum. The cecum was identified by the ileocecal valve and the appendiceal orifice. The scope was then slowly withdrawn and the colonic and rectal mucosa examined. There are no colon mass lesions, polyps, AVMs. There is no inflammatory change. Rectosigmoid diverticulosis was seen. Small and large mouthed, mild in degree. Rectum with 4mm sessile polyp excised with cold forceps. The scope was retroflexed in the anorectal junction examined. Uncomplicated internal hemorrhoids present. Assessment and plan: Iron deficiency anemia rectum polyp rectosigmoid diverticulosis No findings to suggest a cause for anemia or iron deficiency. Timing of next colonoscopy will depend on path of rectum polyp. If hyperplastic, 10 years. If tubular adenoma, 5 years. If sessile serrated polyp, 3 years.
--- NOTE | 2025-03-22 12:51 | W.ANESPOSTOP ---
Postoperative Evaluation Date, Time and Location Date Performed: 03/22/25 Time Performed: 12:28 Patient Location: Day Surgery Unit Vital Signs Most Recent Imported Vital Signs: Most Recent Vital Signs Temp Pulse Resp BP Pulse Ox 36.2 C L 58 L 16 91/61 L 95 03/22/25 12:28 03/22/25 12:28 03/22/25 12:28 03/22/25 12:28 03/22/25 12:28 Pain Score Most Recent Pain Score: Most Recent Pain Score Pain Level 0 03/22/25 12:28 Assessment Mental Status: Awake (Alert & Oriented to Patient Baseline) Airway and Respiratory Function: Patent airway with normal (patient baseline) respiratory exam Cardiovascular Function: Hemodynamically Stable Hydration Status: Adequately Hydrated Nausea & Vomiting: No Nausea or Vomiting Pain: Pt. Denies Any Pain Peripheral Nerve Block: Patient did not receive a nerve block
[2025-03-22 12:56] VITALS: BP 113/62; PULSE 47; RESP 14; TEMP 36.5; O2SAT 96
== END 2025-03-22 13:30 | disposition home or self-care (01) ==
PROVIDERS: Visit Provider Surgery
PROC: (CPT 45380; principal; 2025-03-22 11:15)
DX: D50.9 Iron deficiency anemia, unspecified (principal); K62.1 Rectal polyp; K57.30 Diverticulosis of large intestine without perforation or abscess without bleeding; K25.3 Acute gastric ulcer without hemorrhage or perforation; K25.9 Gastric ulcer, unspecified as acute or chronic, without hemorrhage or perforation; K44.9 Diaphragmatic hernia without obstruction or gangrene; K21.00 Gastro-esophageal reflux disease with esophagitis, without bleeding
CPT/HCPCS: 45380; 43239; 88305; J2003; J2405; J2704

== ENCOUNTER 2025-04-17 01:55 | Outpatient (RCR) | payer BC, SELFPAY ==
[2025-04-04] MEDS: IRON SUCROSE COMPLEX 200 MG in Normal Saline 100 ML 440 MG IVPB (07:48)
[2025-04-04] MEDS: Normal Saline Flush 10 ML SYR IVP (07:48)
[2025-04-10] MEDS: Normal Saline Flush 10 ML SYR IVP (07:23)
[2025-04-10] MEDS: IRON SUCROSE COMPLEX 200 MG in Normal Saline 100 ML 440 MG IVPB (07:23)
[2025-04-17] MEDS: IRON SUCROSE COMPLEX 200 MG in Normal Saline 100 ML 440 MG IVPB (08:34)
[2025-04-17] MEDS: Normal Saline Flush 10 ML SYR IVP (08:34)
== END 2025-04-22 23:59 | disposition home or self-care (01) ==
LOC: INF 01:55
PROVIDERS: Visit Provider Family Medicine
DX: D50.9 Iron deficiency anemia, unspecified (principal)
CPT/HCPCS: 96365; J1756

== ENCOUNTER 2025-04-25 01:57 | Outpatient (RCR) | payer BC, SELFPAY ==
[2025-04-25] MEDS: Normal Saline Flush 10 ML SYR IVP (07:16)
[2025-04-25] MEDS: IRON SUCROSE COMPLEX 200 MG in Normal Saline 100 ML 440 MG IVPB (07:48)
== END 2025-05-23 23:59 | disposition home or self-care (01) ==
LOC: INF 01:57
PROVIDERS: Visit Provider Family Medicine
DX: D64.9 Anemia, unspecified (principal)
CPT/HCPCS: 96365; J1756